=== PATIENT | female | born 1965 | race American Indian/Alaskan Native ===

== ENCOUNTER 2017-03-13 15:31 | Inpatient (IN) ==
[2017-03-13] MEDS ORDERED: IOPAMIDOL 100 ML BOTTLE IV ONE (15:32)
[2017-03-13] MEDS ORDERED: 0.9 % SODIUM CHLORIDE 1,000 ML IV ONE ×2 (15:57→22:16)
[2017-03-13] MEDS ORDERED: ACETAMINOPHEN 325 MG TABLET PO ONE (15:57)
[2017-03-13] MEDS ORDERED: KETOROLAC 30 MG/ML VIAL IV ONE (16:13)
[2017-03-13] MEDS ORDERED: 0.9 % SODIUM CHLORIDE 2,000 ML IV ONE (16:13)
[2017-03-13] MEDS ORDERED: ONDANSETRON 4 MG/2 ML VIAL IV ONE ×2 (16:13→22:22)
[2017-03-13] MEDS ORDERED: cefTRIAXone 1 GM in DEXTROSE 5% IN WATER 50 ML IV SCH (16:15)
[2017-03-13 16:32] LABS: Basophils # (Auto) 0 K/mcL (0.0-0.3); Basophils % (Auto) 0.2 % (0.0-2.0); Eosinophils # (Auto) 0 K/mcL (0.0-0.7); Eosinophils % (Auto) 0.2 % (0.0-7.0); Granulocytes % (Auto) 84.6 % (38.0-78.0); Lymphocytes # (Auto) 1.5 K/mcL (1.5-4.8); Lymphocytes % (Auto) 11.1 % (15.5-49.0); Mean Cell Volume 87.3 fL (80.0-100.0); Mean Corpuscular HGB Conc 33.1 g/dL (31.0-36.0); Mean Corpuscular Hemoglobin 28.9 pg (26.0-34.0); Monocytes # (Auto) 0.5 K/mcL (0.1-0.9); Monocytes % (Auto) 3.9 % (1.0-12.0); Platelet Count 208 K/mcL (140-440); RBC 4.64 M/mcL (4.00-5.20); Red Cell Distribution Width 15.3 % (11.5-14.5)
[2017-03-13 16:38] LABS: Appearance,Urine CLEAR; Bacteria,Urine 0 /hpf (0); Bilirubin,Urine NEG (NEG); Color,Urine YELLOW; Glucose,Urine (UA) NEGATIVE (NEG); Leukocyte Esterase,Urine 500 /uL (NEG); Mucus,Urine FEW /hpf (0); Nitrate,Urine NEG (NEG); Protein,Urine NEG (NEG); Specific Gravity,Urine 1.015 (1.000-1.035); Urine Blood NEG mg/dL (<0.03); Urine RBC 1 /hpf (0-1); Urine Squamous Epithelial Cell 1 /hpf (0-4); Urine WBC 14 /hpf (0-4); Urobilinogen,Urine NEG (NEG)
[2017-03-13] MEDS: HYDROmorphone 2 MG/ML SYRINGE IV PRN ×2 (16:40→19:31)
[2017-03-13 16:51] LABS: ALT/SGPT 27 U/l (0-40); Albumin 4.2 gm/dL (3.2-5.2); Alkaline Phosphatase 83 U/L (39-117); Blood Urea Nitrogen 8 mg/dl (6-20)
[2017-03-13 17:27] LABS: Lipase 21 U/L (7-60)
[2017-03-13] MEDS ORDERED: fentaNYL 100 MCG/2 ML VIAL IV ONE (19:50)
[2017-03-13] MEDS ORDERED: MIDAZOLAM 5 MG/5 ML VIAL IV ONE (19:50)
[2017-03-13] MEDS ORDERED: MIDAZOLAM 2 MG/2 ML VIAL ONE (20:38)
--- NOTE | 2017-03-13 21:54 | Procedure Note ---
Procedures - Lumbar Puncture Consent obtained: written consent Time out performed: Yes Patient position: upright Skin prep: Povidone-Iodine 1% Local anesthetic used: Lidocaine 1% Amount of anesthesia used (mLs): 3 Spinal needle gauge: Other (25 G) Interspace used: L3-L4 Fluid initially obtained: clear Complications: none Additional comments: consulted by Dr. Reynaga for lumbar puncture to R/O meningitis. Pt. consent obtained. pt to sitting position. Skin prepped in sterile fashion. L3-L4 palpated. 3mL 1%lidocaine injected SQ. 20G introduced inserted and 25 G Pencan needle inserted with Positive CSF return 4 Vials filled to total of 7mLs. Needle and introducer removed and bandaid applied to puncture site. Pt tolerated well. No complications noted.
[2017-03-13] MEDS ORDERED: HYDROmorphone 2 MG/ML SYRINGE IV PRN (21:56)
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
[2017-03-13 23:21] LABS: Glucose,CSF 58 mg/dL (45-75)
--- NOTE | 2017-03-13 23:32 | Internal Med History&Physical ---
Medical - H&P: HPI Patient information: Note initiated : 03/13/17 at 11:29 pm Service Date, if different from initiated Date: [] Patient: Zhane Meredith a 51 y/o F admitted on for abd pain, pain with urination , fever. Chief Complaint: [] History of present illness: Ms. Meredith is a 51 year old Female with h/o asthma presented to the ER today with compalitns of weakness fever and abodminal pain, knee pain. The patient was in some distress from pain, and was unable to provide a good time frame She notes that she had a left knee replacement done early this year by Dr Glasgow. the patient has been having some pain in the left knee going on for the last 1 month, taking some otc meds and ice packs to help deal with same. Over the last few days she notes pain has gotten worse and she has found it difficult to walk to day due to pain and weakness. Predominantly weakness. she notes that her acute worsening happened after a flu shot I believe given in [facility], the patient notes she was sick on wednesday, with lower abdmoinal pain and weakness, had some stiffness in the neck, and upper back. She notes she had lower abdominal cramping pain, non radiating assocated with increased frequency of urinartion, she notes pain in the urethral region as if somebody pulled a catheters out of there. The patient has been having some constipatin. She admits to some headaches, and dizziness. Some nausea and vomiting. some epigastric pain, but significant hypogastric pain. She admits having pain in multipe regions of her body, unable to localize well. In the ER she was febrile with tmax of 104.8, HR 120-130, BP stable, 96% on room air. She had a positive ua on urine analsysis, elevaetd wbc count to 13K, regino f lab work was unremakrable. The patient had CT abdomen which was reported neg, given her high temp ER physian performed a LP which showed clear liquid studies are pending During my eval the patient also ahd painful left knee,which was warmer than the right, and had some effusion. Er Provider Dr Reynaga tapped the joint and fluid sent for analysis, hemorrhage cloudy liquid was aspirated. patient was admitted to the hospital for further management. All systems: reviewed and no additional remarkable complaints except as stated ( as per HPI) Medical - H&P: PMH Medical history: OA Asthma HTN ? lupus depression Surgical history: bik TKA Family history: reviewed and not pertinent Social history: ex smoker denies recrational drugs social etoh Medical - H&P: Meds Home Medications Medication Instructions Recorded Confirmed Type Albuterol Sulfate [Ventolin] 1 puff INH Q4HP PRN 08/31/16 03/13/17 History Mometasone Furoate [Asmanex Hfa] 1 puff INH DAILY 08/31/16 03/13/17 History Allergies Allergy/AdvReac Type Severity Reaction Status Date / Time sumatriptan [From Imitrex] Allergy Severe Unknown Verified 08/31/16 15:15 TAPE Allergy Intermediate Blister Uncoded 08/31/16 15:19 Medical - H&P: Exam - Constitutional Vitals: Temp Pulse Resp BP Pulse Ox 102.4 F H 106 H 16 110/71 98 03/13/17 21:12 03/13/17 22:53 03/13/17 22:53 03/13/17 22:53 03/13/17 22:53 Exam: GENERAL: The patient is a well-developed, well-nourished Is alert and oriented x3. obese mild distress VITAL SIGNS: Reviewed and as noted elsewhere. HEENT: Head is normocephalic and atraumatic. Extraocular muscles are intact. Pupils are equal, round, and reactive to light. Nares appeared normal. Mouth appears any without lesions. Mucous membranes are moist. NECK: Normal to inspection, Supple, No lymphadenopathy or thyromegaly. LUNGS: Air entry equal on both sides, no wheezing, crackles or rhonchi noted. No accessory muscles of respiration HEART: Regular tachycardic rate and rhythm normal, S1 and S2 heard, no Gallop, S3 or Rub Noted, No Gross murmur heard. ABDOMEN: Soft, hypogastric tenderness and left upper quadrant tendeness noted, abdomen is nondistended. Positive bowel sounds. No hepatosplenomegaly was noted. EXTREMITIES: No cyanosis, clubbing, rash, lesions or edema., left knee slightlhy more swollen, but was warm to palpation than the right knee. NEUROLOGIC: Cranial nerves II through XII are grossly intact. Motor and Sensory System Grossly Intact PSYCHIATRIC: Normal affect, Normal Mood. Appropriate Behavior. SKIN: No ulceration or wounds noted, No jaundice, No rash noted. Medical - H&P: Reslt - Labs CBC & Chem 7: 03/13/17 15:55 03/13/17 15:55 Labs: Short CBC 03/13/17 Range/Units 15:55 WBC 13.8 H (4.5-11.0) K/mcL Hgb 13.4 (12.0-15.0) g/dL Hct 40.5 (36.0-48.0) % Plt Count 208 (140-440) K/mcL BMP 03/13/17 15:55 Sodium 136 Potassium 3.5 Chloride 96 Carbon Dioxide 25 BUN 8 Creatinine 0.9 Glucose 98 Calcium 9.3 Liver Function 03/13/17 Range/Units 15:55 Total Bilirubin 0.8 (0.0-1.0) mg/dL AST 37 (0-37) U/l ALT 27 (0-40) U/l Alkaline Phosphatase 83 (39-117) U/L Albumin 4.2 (3.2-5.2) gm/dL Urine 03/13/17 Range/Units 16:10 Urine Color Yellow Urine Appearance Clear Urine pH 8.0 (5.0-9.0) Ur Specific [place] 1.015 (1.000-1.035) Urine Protein Neg (NEG) mg/dL Urine Glucose (UA) Negative (NEG) mg/dL Medical - H&P: A/P - Narrative A/P Narrative: A/P Sepsis septic Arthritis Urinary tract infection ? meningitis Asthma Obesity Hypokalemia Plan Treat sepsis with IV antibiotics and underlying etiology Give a vague clinical picture, difficult to ascertain the etiology of her fever , Its likely that she just has a UTI, however her high degree of fever other etiology needed to be ruled out. Her generalized pain every where made it difficult to pin point her source. She had some neck stiffness, chr headaches which made meningitis a possibility Her left knee pain, recently replaced joint, h/o mrsa made septic arthritis possibility both csf and synovial fluids were sent for analysis IV boluese of fluids ordered will get CXR chest IV vancomycin and Rocephin for now. follow cultures replace electrolytes. DVT hep sq Cardiac diet Full Code.
[2017-03-13 23:37] LABS: Appearance,CSF CLEAR; Nucleated Cells,CSF 4 /cumm (0-5); Red Blood Cell,CSF 0 /cumm (0-1)
[2017-03-13 23:38] LABS: Appearance,CSF CLEAR; Nucleated Cells,CSF 4 /cumm (0-5); Red Blood Cell,CSF 0 /cumm (0-1)
[2017-03-14] MEDS ORDERED: VANCOMYCIN PER PHARMACY IV SCH (00:06)
[2017-03-14] MEDS ORDERED: 0.9 % SODIUM CHLORIDE 1,000 ML IV ONE ×2 (00:06)
[2017-03-14] MEDS ORDERED: PROMETHAZINE 25 MG/ML VIAL IV PRN (00:06)
[2017-03-14] MEDS ORDERED: ACETAMINOPHEN 325 MG TABLET PO PRN (00:06)
[2017-03-14] MEDS ORDERED: cefTRIAXone 1 GM in DEXTROSE 5% IN WATER 50 ML IV ONE (00:06)
[2017-03-14] MEDS ORDERED: VANCOMYCIN 1,500 MG in 0.9 % SODIUM CHLORIDE 500 ML IV ONE (00:06)
[2017-03-14] MEDS ORDERED: NALOXONE HCL 0.4 MG/ML VIAL IV PRN (00:06)
[2017-03-14] MEDS ORDERED: MAG HYDROX/AL HYDROX/SIMETH 30 ML ORAL.SUSP PO PRN (00:06)
[2017-03-14] MEDS ORDERED: cefTRIAXone 1 GM VIAL ONE (00:18)
[2017-03-14] MEDS ORDERED: VANCOMYCIN 500 MG VIAL ONE (00:18)
[2017-03-14] MEDS ORDERED: VANCOMYCIN 1 GM VIAL ONE (00:19)
[2017-03-14 00:24] LABS: Lymphocytes,CSF 83 % (40-80); Monocytes,CSF 17 % (15-45); Total Cell Ct,CSF 88
[2017-03-14] MEDS: ACETAMINOPHEN 650 MG/65 ML BOTTLE IV SCH ×4 (01:10→17:43)
[2017-03-14] MEDS ORDERED: ONDANSETRON 4 MG/2 ML VIAL ONE (01:27)
[2017-03-14] MEDS ORDERED: HYDROmorphone 2 MG/ML SYRINGE ONE ×2 (01:27→05:32)
[2017-03-14 01:32] LABS: Appearance,Synovial Fluid BLOODY; Color,Synovial Fluid RED
[2017-03-14] MEDS: IPRATROPIUM/ALBUTEROL 3 ML AMPUL.NEB NEB SCH ×4 (01:36→19:26)
[2017-03-14] MEDS: HEPARIN 5,000 UNIT/ML VIAL SQ SCH ×3 (01:38→21:04)
[2017-03-14] MEDS ORDERED: HEPARIN 5,000 UNIT/ML VIAL ONE (01:40)
[2017-03-14] MEDS ORDERED: IPRATROPIUM/ALBUTEROL 3 ML AMPUL.NEB NEB ONE (01:41)
[2017-03-14 01:52] LABS: Lymphocytes,Synovial Fluid 23 %; Neutrophils,Synovial Fluid 68 % (0-25); Other Cells,Synovial Fluid 9 %
[2017-03-14] MEDS: 0.9 % SODIUM CHLORIDE 1,000 ML IV SCH ×3 (02:32→16:21)
[2017-03-14] MEDS: HYDROmorphone 2 MG/ML SYRINGE IV PRN ×5 (05:31→22:55)
[2017-03-14] MEDS: 0.9 % SODIUM CHLORIDE 10 ML SYRINGE IV SCH ×3 (05:32→22:56)
[2017-03-14 06:45] LABS: Basophils # (Auto) 0 K/mcL (0.0-0.3); Basophils % (Auto) 0.2 % (0.0-2.0); Eosinophils # (Auto) 0 K/mcL (0.0-0.7); Eosinophils % (Auto) 0 % (0.0-7.0); Lymphocytes # (Auto) 1.3 K/mcL (1.5-4.8); Lymphocytes % (Auto) 8.3 % (15.5-49.0); Mean Cell Volume 88.2 fL (80.0-100.0); Mean Corpuscular HGB Conc 33.6 g/dL (31.0-36.0); Mean Corpuscular Hemoglobin 29.6 pg (26.0-34.0); Monocytes # (Auto) 0.5 K/mcL (0.1-0.9); Monocytes % (Auto) 3.5 % (1.0-12.0); Platelet Count 150 K/mcL (140-440); RBC 4.01 M/mcL (4.00-5.20); Red Cell Distribution Width 15.9 % (11.5-14.5)
[2017-03-14 07:00] LABS: Hemoglobin A1C 5.4 % HGB (4.0-6.0)
[2017-03-14 07:05] LABS: C-Reactive Protein 8.8 mg/dl (0.0-0.8)
[2017-03-14 07:07] LABS: ALT/SGPT 18 U/l (0-40); Albumin/Globulin Ratio 0.8 (1.0-2.3); Alkaline Phosphatase 64 U/L (39-117); Bilirubin,Direct < 0.2 mg/dL (0.0-0.3); Blood Urea Nitrogen 6 mg/dl (6-20); Gamma Glutamyl Transpeptidase 20 U/L (5-36); Magnesium 1.8 mg/dL (1.6-2.5); Uric Acid 4.5 mg/dL (2.5-8.0)
[2017-03-14] MEDS: DOCUSATE SODIUM 100 MG CAPSULE PO SCH ×2 (08:11→22:43)
--- NOTE | 2017-03-14 09:00 | Cat Scan Report ---
CLINICAL INFORMATION: Reason for Exam:lower quadrant pain and fever COMPARISON: Chest CT on 06/10/12 TECHNIQUE: Following injection of intravenous contrast the patient was scanned during the portal venous phase from the diaphragm through the symphysis pubis. Sagittal and coronal reformats were created.. FINDINGS: There is a mild reticular nodular infiltrate posteriorly in the right lower lobe. A similar finding was seen on a prior chest CT done on 06/10/12. Moderate generalized fatty infiltration is present throughout the liver. There is a lobulated 1.3 cm fluid-filled structure high in the right lobe. Anterolaterally in the right lobe there is another 9 x 10 mm cyst. These were both present in 2013 and they have both enlarged several millimeter. They do not enhance with contrast and have water attenuation. No solid mass is seen within the liver. The bile ducts are nondilated. There are no gallstones or thickening of the gallbladder wall. The spleen, pancreas, adrenals and kidneys are normal. The bowel pattern is normal. The appendix is noninflamed and there is no evidence of diverticulitis or inflammatory bowel disease. No abnormality is seen within the uterus or ovaries. There is no adenopathy or ascites. IMPRESSION: Moderate fatty infiltration of the liver with a couple small to intermediate sized cysts. Reticular nodular infiltrate in the right lower lobe which may be seen with bronchopneumonia Normal right lower quadrant Dr. Reynaga was called with results Interpreted and Authenticated by: Cordell Stevenson 03/14/17
[2017-03-14] MEDS: ONDANSETRON 4 MG/2 ML VIAL IV PRN ×2 (09:11→15:06)
--- NOTE | 2017-03-14 09:36 | XRay Report ---
HISTORY: Reason for Exam:fever FINDINGS: Subtle increased lung markings are present medially at the right lung base. These were better seen on the abdomen CT scan done on 03/13/17. The lungs are otherwise clear and well expanded. The heart size, mediastinum, carri and pleura are normal. IMPRESSION: Subtle interstitial infiltrate posteriorly and medially in the right lung base Interpreted and Authenticated by: Cordell Stevenson 03/14/17
[2017-03-14] MEDS ORDERED: AZITHROMYCIN 500 MG in DEXTROSE 5% IN WATER 250 ML IV ONE (10:00)
--- NOTE | 2017-03-14 10:17 | Internal Med Progress Note ---
Medical - PN: Subj Patient information: Note initiated : 03/14/17 at 10:15 am Service Date, if different from initiated Date: [] Patient: Zhane Meredith a 51 y/o F admitted on 03/14/17 for abd pain, pain with urination, fever. Chief Complaint: [] Interval history: Ms. Meredith is a 51 year old Female with h/o asthma presented to the ER today with compalitns of weakness fever and abodminal pain, knee pain. The patient was in some distress from pain, and was unable to provide a good time frame She notes that she had a left knee replacement done early this year by Dr Glasgow. the patient has been having some pain in the left knee going on for the last 1 month, taking some otc meds and ice packs to help deal with same. Over the last few days she notes pain has gotten worse and she has found it difficult to walk to day due to pain and weakness. Predominantly weakness. she notes that her acute worsening happened after a flu shot I believe given in [facility], the patient notes she was sick on wednesday, with lower abdmoinal pain and weakness, had some stiffness in the neck, and upper back. She notes she had lower abdominal cramping pain, non radiating assocated with increased frequency of urinartion, she notes pain in the urethral region as if somebody pulled a catheters out of there. The patient has been having some constipatin. She admits to some headaches, and dizziness. Some nausea and vomiting. some epigastric pain, but significant hypogastric pain. She admits having pain in multipe regions of her body, unable to localize well. In the ER she was febrile with tmax of 104.8, HR 120-130, BP stable, 96% on room air. She had a positive ua on urine analsysis, elevaetd wbc count to 13K, regino f lab work was unremakrable. The patient had CT abdomen which was reported neg, given her high temp ER physian performed a LP which showed clear liquid studies are pending During my eval the patient also ahd painful left knee,which was warmer than the right, and had some effusion. Er Provider Dr Reynaga tapped the joint and fluid sent for analysis, hemorrhage cloudy liquid was aspirated. patient was admitted to the hospital for further management. March 14 Patient seen examined, no acute overnight issues, patient having headaches since last night still has lower abdominal pain she is afebrile now, and heart rate is better CSF and Synovial fluid not suggestive as etiology of her infection procalcitonin is elevated, UTI likely, but CXR and CT abdomen also show a some infiltrate indicative of broncho pneumonia. Will add azithromycin to her regime. 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 Will monitor culture results, discontinue vanco once cultures are negative. Pertinent ROS: headche , dizziness present. Denies chest pain, palpitations Denies cough or shortness of breath Present abdominal pain, nausea and vomiting. - Constitutional Vitals: Vital Signs Temp Pulse Resp BP Pulse Ox 97.6 F 99 H 16 101/60 98 03/14/17 07:15 03/14/17 08:49 03/14/17 08:49 03/14/17 07:15 03/14/17 08:49 Period Temp Pulse Resp BP Sys/Espinoza Pulse Ox Last 24 Hr 97.6 F-104.8 F 87-127 11-40 82-138/31-91 93-100 Intake and Output 03/13/17 03/14/17 03/14/17 21:59 05:59 13:59 Intake Total 3050 / 3050 3515 / 3515 917 / 917 Output Total 750 / 750 800 / 800 Balance 3050 / 3050 2765 / 2765 117 / 117 Weight 236 lb 236 lb Intake & Output: Intake & Output 03/13/17 03/14/17 03/14/17 21:59 05:59 13:59 Intake Total 3050 / 3050 3515 / 3515 917 / 917 Output Total 750 / 750 800 / 800 Balance 3050 / 3050 2765 / 2765 117 / 117 Weight 236 lb 236 lb Intake: IV 3050 / 3050 3115 / 3115 717 / 717 Sodium Chloride 0.9% 1,000 ml @ 3000 / 3000 3000 / 3000 652 / 652 125 mls/hr IV .Q8H [facility] Rx#: [id number] Rocephin 1 gm In Dextrose 5% in 50 / 50 50 / 50 Water 50 ml @ 100 mls/hr IV ONCE ONE Rx#:[id number] Oral 400 / 400 200 / 200 Output: Void Amount 750 / 750 400 / 400 Urine/Stool Mix 400 / 400 Other: Meal Breakfast Percent of Meal Consumed Refused # Voids 1 1 # Bowel Movements 1 Exam: Constitutional; Afebrile, cooperative, alert, not in distress. Eyes- No icterus, , No periorbital swelling Ears- Ext ear normal, hearing normal to conversation. Neck- Midline trachea, supple Respiratory system: Air Entry equal on both sides, No crackles or wheezing, no rhonchi. CVS- Rate rhythm regular, S1,S2 heard, no gallop, no rub. Abdomen- Soft abdomen, hypogastric tenderness present. no organomegaly, no tenderness, no guarding or rigidity, CLOUD SERVICES ARCHITECT- AOOx3, moving all extremities, no gross focal deficit noted. Medical - PN: Obj Da - Labs CBC & Chem 7: 03/14/17 06:05 03/14/17 06:06 Labs: Abnormal Lab Results 03/14/17 03/14/17 03/14/17 06:06 06:06 06:05 WBC 15.7 H Hgb 11.9 L Hct 35.3 L RDW 15.9 H Gran % 88.0 H Lymph % (Auto) 8.3 L Gran # 13.8 H Lymph # (Auto) 1.3 L ESR 38 H Calcium 7.7 L POC WB Ioniz Calcium C-Reactive Protein Albumin 3.0 L Globulin 3.9 H Albumin/Globulin Ratio 0.8 L Ur Leukocyte Esterase Urine WBC CSF Lymphocytes Synovial Neutrophils 03/14/17 03/13/17 03/13/17 06:05 23:29 22:06 WBC Hgb Hct RDW Gran % Lymph % (Auto) Gran # Lymph # (Auto) ESR Calcium POC WB Ioniz Calcium C-Reactive Protein 8.8 H Albumin Globulin Albumin/Globulin Ratio Ur Leukocyte Esterase Urine WBC CSF Lymphocytes 83 H Synovial Neutrophils 68 H 03/13/17 03/13/17 03/13/17 16:38 16:10 15:55 WBC Hgb Hct RDW Gran % Lymph % (Auto) Gran # Lymph # (Auto) ESR Calcium POC WB Ioniz Calcium 1.01 L C-Reactive Protein Albumin Globulin 4.1 H Albumin/Globulin Ratio Ur Leukocyte Esterase 500 A Urine WBC 14 H CSF Lymphocytes Synovial Neutrophils 03/13/17 15:55 WBC 13.8 H Hgb Hct RDW 15.3 H Gran % 84.6 H Lymph % (Auto) 11.1 L Gran # 11.6 H Lymph # (Auto) ESR Calcium POC WB Ioniz Calcium C-Reactive Protein Albumin Globulin Albumin/Globulin Ratio Ur Leukocyte Esterase Urine WBC CSF Lymphocytes Synovial Neutrophils Meds: Medications Al Hydrox/Mg Hydrox/Simethicone (Maalox) 30 ml PO Q6HP PRN PRN Reason: Dyspepsia Albuterol/Ipratropium (Duoneb) 3 ml NEB Q6HRT [facility] Last Admin: 03/14/17 08:48 Dose: 3 ml Docusate Sodium (Colace) 100 mg PO BID [facility] Last Admin: 03/14/17 08:11 Dose: 100 mg Heparin Sodium (Porcine) (Heparin) 5,000 unit SQ Q12 [facility] Last Admin: 03/14/17 08:11 Dose: 5,000 unit Hydromorphone HCl (Dilaudid) 1 mg IV Q2HP PRN PRN Reason: Pain Last Admin: 03/14/17 09:12 Dose: 1 mg Sodium Chloride (Sodium Chloride 0.9%) 1,000 mls @ 125 mls/hr IV .Q8H [facility] Last Admin: 03/14/17 07:45 Dose: 125 mls/hr Ceftriaxone Sodium 2 gm/ (Dextrose) 50 mls @ 100 mls/hr IV Q24H [facility] Acetaminophen (Ofirmev) 650 mg in 65 mls @ 130 mls/hr IV Q6H [facility] Last Infusion: 03/14/17 06:35 Dose: Infused Vancomycin HCl 1,500 mg/ (Sodium Chloride) 500 mls @ 333.3 mls/hr IV Q12H [facility] Azithromycin 500 mg/ Dextrose 250 mls @ 250 mls/hr IV ONCE ONE Stop: 03/14/17 10:59 Azithromycin 250 mg/ Dextrose 250 mls @ 250 mls/hr IV Q24H [facility] Stop: 03/18/17 10:59 Naloxone HCl (Narcan) 0.1 mg IV Q2MIN PRN PRN Reason: Opiate Reversal Ondansetron HCl (Zofran) 4 mg IV Q6HP PRN PRN Reason: Nausea And Vomiting Last Admin: 03/14/17 09:11 Dose: 4 mg Mometasone Furoate [ (Asmanex Hfa] Inhaler) 1 dose INH DAILY [facility] Last Admin: 03/14/17 09:15 Dose: Not Given Promethazine HCl (Phenergan) 12.5 mg IV Q6HP PRN PRN Reason: Nausea And Vomiting Sodium Chloride (Saline Flush) 10 ml IV Q8 [facility] Last Admin: 03/14/17 05:32 Dose: 10 ml Vancomycin HCl (Vancomycin Per Pharmacy) 1 order IV UD [facility] Medical - PN: A/P - Time Spent With Patient Total time spent is greater than 50% in coordination of care (as documented) at patient's floor/unit and/or counseling patient: - Narrative A/P Narrative: A/P Sepsis septic Arthritis Urinary tract infection ? meningitis Pneumonia. HCAP Asthma Obesity Hypokalemia Plan Treat sepsis with IV antibiotics and underlying etiology Give a vague clinical picture, difficult to ascertain the etiology of her fever , UTI is most likely , X ray shows possible small pneumoina, CSF and synovial fluid analsysi seems negative. will await cultures. IV fluids for now IV vancomycin and Rocephin for now. Azithromycin ordered. follow cultures DVT hep sq Cardiac diet Full Code.
[2017-03-14] MEDS ORDERED: DESONIDE TOPICAL PRN (10:22)
[2017-03-14] MEDS: VANCOMYCIN 1,500 MG in 0.9 % SODIUM CHLORIDE 500 ML IV SCH (12:19)
--- NOTE | 2017-03-14 15:42 | XRay Report ---
HISTORY: Reason for Exam:chest pressure FINDINGS: There is a small vertically oriented streaky infiltrate located posteriorly and medially in the right lower lobe. The remainder of the lung wright are clear. The heart size, mediastinum and carri are normal. There is no pleural effusion. The opacity at the right lung base is more apparent now than it was at 7:51 AM on the same date. IMPRESSION: Small zone of atelectasis or pneumonia located posteriorly and medially in the right lower lobe Interpreted and Authenticated by: Cordell Stevenson 03/14/17
[2017-03-14] MEDS ORDERED: cefTRIAXone 2 GM in DEXTROSE 5% IN WATER 50 ML IV SCH (16:00)
[2017-03-14 16:30] LABS: Complement C3 139.5 mg/dl (90-180)
[2017-03-14 18:05] LABS: Amphetamine Screen,Urine NONE DETECTED (NONDETECTED); Benzodiazepines Screen,Urine NONE DETECTED (NONDETECTED); Cocaine Screen,Urine NONE DETECTED (NONDETECTED); Opiate Screen,Urine NONE DETECTED (NONDETECTED); Oxycodone, Urine Screen NONE DETECTED (NONDETECTED)
[2017-03-15] MEDS: ACETAMINOPHEN 650 MG/65 ML BOTTLE IV SCH ×4 (00:35→18:30)
[2017-03-15] MEDS: ALBUTEROL SULFATE 2.5 MG/3 ML NEBULIZER NEB SCH ×4 (00:37→19:23)
[2017-03-15] MEDS: VANCOMYCIN 1,500 MG in 0.9 % SODIUM CHLORIDE 500 ML IV SCH ×2 (00:37→13:13)
[2017-03-15] MEDS ORDERED: ALBUTEROL SULFATE 2.5 MG/3 ML NEBULIZER ONE (00:39)
[2017-03-15] MEDS: 0.9 % SODIUM CHLORIDE 1,000 ML IV SCH ×4 (01:01→15:18)
[2017-03-15] MEDS: HYDROmorphone 2 MG/ML SYRINGE IV PRN ×3 (03:39→17:13)
[2017-03-15 06:05] LABS: Basophils # (Auto) 0 K/mcL (0.0-0.3); Basophils % (Auto) 0.2 % (0.0-2.0); Eosinophils # (Auto) 0 K/mcL (0.0-0.7); Eosinophils % (Auto) 0 % (0.0-7.0); Granulocytes % (Auto) 89.8 % (38.0-78.0); Lymphocytes % (Auto) 5.8 % (15.5-49.0); Mean Cell Volume 88.7 fL (80.0-100.0); Mean Corpuscular HGB Conc 32.9 g/dL (31.0-36.0); Mean Corpuscular Hemoglobin 29.2 pg (26.0-34.0); Monocytes # (Auto) 0.7 K/mcL (0.1-0.9); Monocytes % (Auto) 4.2 % (1.0-12.0); Platelet Count 136 K/mcL (140-440); RBC 3.64 M/mcL (4.00-5.20); Red Cell Distribution Width 15.5 % (11.5-14.5)
[2017-03-15 06:30] LABS: ALT/SGPT 14 U/l (0-40); Albumin 2.8 gm/dL (3.2-5.2); Albumin/Globulin Ratio 0.8 (1.0-2.3); Alkaline Phosphatase 62 U/L (39-117); Bilirubin,Direct < 0.2 mg/dL (0.0-0.3); Blood Urea Nitrogen 4 mg/dl (6-20); Gamma Glutamyl Transpeptidase 21 U/L (5-36); Magnesium 1.9 mg/dL (1.6-2.5)
[2017-03-15] MEDS: 0.9 % SODIUM CHLORIDE 10 ML SYRINGE IV SCH ×3 (06:33→20:21)
[2017-03-15] MEDS: ONDANSETRON 4 MG/2 ML VIAL IV PRN ×2 (07:15→20:21)
[2017-03-15] MEDS ORDERED: POTASSIUM CHLORIDE 40 MEQ in DEXTROSE 5% IN WATER 500 ML IV ONE (07:30)
[2017-03-15] MEDS: HEPARIN 5,000 UNIT/ML VIAL SQ SCH ×2 (10:47→20:21)
[2017-03-15] MEDS: DOCUSATE SODIUM 100 MG CAPSULE PO SCH ×2 (10:47→20:20)
[2017-03-15] MEDS: PIPERACILLIN SODIUM/TAZOBACTAM 3.375 GM in DEXTROSE 5% IN WATER 50 ML IV SCH ×3 (10:48→18:07)
[2017-03-15] MEDS: AZITHROMYCIN 250 MG in DEXTROSE 5% IN WATER 250 ML IV SCH (10:48)
[2017-03-15] MEDS ORDERED: 0.9 % SODIUM CHLORIDE 10 ML SYRINGE IV PRN (10:57)
--- NOTE | 2017-03-15 11:14 | Ultrasound Report ---
CLINICAL INFORMATION: Pelvic pain COMPARISON: Abdomen and pelvic CT from 03/05/2017 FINDINGS: Uterus is anteverted and normal in size for postmenopausal woman - 6.4 x 5 cm. Endometrium is normal is 5 mm. Myometrium is mildly heterogeneous. Left ovary is not visualized. Right ovary is normal: 2.6 x 2.8 cm. The left uterine and periovarian venous plexuses are mildly dilated. Small amount of physiologic anechoic free fluid is noted in the pouch of Harvinder IMPRESSION: 1. Uterus is anteflexed and postmenopausal in size. Inhomogeneous myometrium typically indicates adenomyosis and/or small fibroids below the limits of sonographic resolution. The endometrium is slightly atrophic which can be a cause of dysfunctional uterine bleeding 2. Mild enlargement of the left periuterine and periovarian venous plexus - also noted on recent CT. This is likely insignificant unless there is chronic pelvic pain possibly indicating pelvic congestion syndrome Interpreted and Authenticated by: Dawson Rosenbaum 03/15/17
[2017-03-15] MEDS: METOCLOPRAMIDE 10 MG/2 ML VIAL IV SCH ×3 (11:41→20:21)
--- NOTE | 2017-03-15 16:06 | Internal Med Progress Note ---
Medical - PN: Subj Patient information: Note initiated : 03/15/17 at 4:04 pm Service Date, if different from initiated Date: [] Patient: Zhane Meredith a 51 y/o F admitted on 03/14/17 for Abd Pain, Pain with Urination, Fever/UTI, Sepsis. Chief Complaint: [] Interval history: Ms. Meredith is a 51 year old Female with h/o asthma presented to the ER today with compalitns of weakness fever and abodminal pain, knee pain. The patient was in some distress from pain, and was unable to provide a good time frame She notes that she had a left knee replacement done early this year by Dr Glasgow. the patient has been having some pain in the left knee going on for the last 1 month, taking some otc meds and ice packs to help deal with same. Over the last few days she notes pain has gotten worse and she has found it difficult to walk to day due to pain and weakness. Predominantly weakness. she notes that her acute worsening happened after a flu shot I believe given in [facility], the patient notes she was sick on wednesday, with lower abdmoinal pain and weakness, had some stiffness in the neck, and upper back. She notes she had lower abdominal cramping pain, non radiating assocated with increased frequency of urinartion, she notes pain in the urethral region as if somebody pulled a catheters out of there. The patient has been having some constipatin. She admits to some headaches, and dizziness. Some nausea and vomiting. some epigastric pain, but significant hypogastric pain. She admits having pain in multipe regions of her body, unable to localize well. In the ER she was febrile with tmax of 104.8, HR 120-130, BP stable, 96% on room air. She had a positive ua on urine analsysis, elevaetd wbc count to 13K, regino f lab work was unremakrable. The patient had CT abdomen which was reported neg, given her high temp ER physian performed a LP which showed clear liquid studies are pending During my eval the patient also ahd painful left knee,which was warmer than the right, and had some effusion. Er Provider Dr Reynaga tapped the joint and fluid sent for analysis, hemorrhage cloudy liquid was aspirated. patient was admitted to the hospital for further management. March 14 Patient seen examined, no acute overnight issues, patient having headaches since last night still has lower abdominal pain she is afebrile now, and heart rate is better CSF and Synovial fluid not suggestive as etiology of her infection procalcitonin is elevated, UTI likely, but CXR and CT abdomen also show a some infiltrate indicative of broncho pneumonia. Will add azithromycin to her regime. 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 Will monitor culture results, discontinue vanco once cultures are negative. March 15 Patient seen examined, no acute overnight events, pt mildly febrile still complains of nausea and abdominal pain headache not as much today Pertinent ROS: present headache, No dizziness Denies chest pain, palpitations Denies cough or shortness of breath present abdominal pain, nausea no vomiting. - Constitutional Vitals: Vital Signs Temp Pulse Resp BP Pulse Ox 97.8 F 77 16 106/78 98 03/15/17 15:44 03/15/17 15:44 03/15/17 15:44 03/15/17 15:44 03/15/17 15:44 Period Temp Pulse Resp BP Sys/Espinoza Pulse Ox Last 24 Hr 97.8 F-99.7 F 75-95 12-18 94-115/58-80 91-99 Intake and Output 03/15/17 03/15/17 03/15/17 05:59 13:59 21:59 Intake Total 1865 / 1865 1430 / 1430 500 / 500 Output Total 1400 / 1400 1350 / 1350 950 / 950 Balance 465 / 465 80 / 80 -450 / -450 Weight 236 lb Patient Weight 03/16/17 05:59 Weight 236 lb Intake & Output: Intake & Output 03/15/17 03/15/17 03/15/17 05:59 13:59 21:59 Intake Total 1865 / 1865 1430 / 1430 500 / 500 Output Total 1400 / 1400 1350 / 1350 950 / 950 Balance 465 / 465 80 / 80 -450 / -450 Weight 236 lb Intake: IV 1615 / 1615 1430 / 1430 500 / 500 Sodium Chloride 0.9% 1,000 ml @ 1000 / 1000 1000 / 1000 125 mls/hr IV .Q8H [facility] Rx#: [id number] Zithromax 250 mg In Dextrose 5% 250 / 250 in Water 250 ml @ 250 mls/hr IV Q24H [facility] Rx#:[id number] Zosyn 3.375 gm In Dextrose 5% 50 / 50 in Water 50 ml @ 100 mls/hr IV Q6H [facility] Rx#:[id number] Vancomycin 1,500 mg In Sodium 500 / 500 500 / 500 Chloride 0.9% 500 ml @ 333.3 mls/hr IV Q12H [facility] Rx#: [id number] Rocephin 2 gm In Dextrose 5% in 50 / 50 Water 50 ml @ 100 mls/hr IV Q24H [facility] Rx#:[id number] Oral 250 / 250 Output: Void Amount 900 / 900 1350 / 1350 600 / 600 # of times incontinent of urine 500 / 500 Urine/Stool Mix 350 / 350 Other: # Voids 1 1 1 # Bowel Movements 1 Exam: Constitutional; Afebrile, cooperative, alert, not in distress. Eyes- No icterus, , No periorbital swelling Ears- Ext ear normal, hearing normal to conversation. Neck- Midline trachea, supple Respiratory system: Air Entry equal on both sides, No crackles or wheezing, no rhonchi. CVS- Rate rhythm regular, S1,S2 heard, no gallop, no rub. Abdomen- Soft abdomen, hypgastric tenderness present no organomegaly, no tenderness, no guarding or rigidity, BOILER OUT- AOOx3, moving all extremities, no gross focal deficit noted. Medical - PN: Obj Da - Labs CBC & Chem 7: 03/15/17 04:44 03/15/17 04:44 Labs: Abnormal Lab Results 03/15/17 03/15/17 03/14/17 04:44 04:44 15:25 WBC 16.7 H RBC 3.64 L Hgb 10.6 L Hct 32.3 L RDW 15.5 H Plt Count 136 L Gran % 89.8 H Lymph % (Auto) 5.8 L Gran # 15.0 H Lymph # (Auto) 1.0 L ESR Potassium 3.1 L BUN 4 L Calcium 8.3 L POC WB Ioniz Calcium Phosphorus 2.3 L C-Reactive Protein Albumin 2.8 L Globulin Albumin/Globulin Ratio 0.8 L Ur Leukocyte Esterase Urine WBC CSF Lymphocytes Synovial Neutrophils Complement C4 8.4 L 03/14/17 03/14/1717 06:06 06:06 06:05 WBC 15.7 H RBC Hgb 11.9 L Hct 35.3 L RDW 15.9 H Plt Count Gran % 88.0 H Lymph % (Auto) 8.3 L Gran # 13.8 H Lymph # (Auto) 1.3 L ESR 38 H Potassium BUN Calcium 7.7 L POC WB Ioniz Calcium Phosphorus C-Reactive Protein Albumin 3.0 L Globulin 3.9 H Albumin/Globulin Ratio 0.8 L Ur Leukocyte Esterase Urine WBC CSF Lymphocytes Synovial Neutrophils Complement C4 03/14/17 03/13/17 03/13/17 06:05 23:29 22:06 WBC RBC Hgb Hct RDW Plt Count Gran % Lymph % (Auto) Gran # Lymph # (Auto) ESR Potassium BUN Calcium POC WB Ioniz Calcium Phosphorus C-Reactive Protein 8.8 H Albumin Globulin Albumin/Globulin Ratio Ur Leukocyte Esterase Urine WBC CSF Lymphocytes 83 H Synovial Neutrophils 68 H Complement C4 03/13/17 03/13/17 03/13/17 16:38 16:10 15:55 WBC RBC Hgb Hct RDW Plt Count Gran % Lymph % (Auto) Gran # Lymph # (Auto) ESR Potassium BUN Calcium POC WB Ioniz Calcium 1.01 L Phosphorus C-Reactive Protein Albumin Globulin 4.1 H Albumin/Globulin Ratio Ur Leukocyte Esterase 500 A Urine WBC 14 H CSF Lymphocytes Synovial Neutrophils Complement C4 03/13/17 15:55 WBC 13.8 H RBC Hgb Hct RDW 15.3 H Plt Count Gran % 84.6 H Lymph % (Auto) 11.1 L Gran # 11.6 H Lymph # (Auto) ESR Potassium BUN Calcium POC WB Ioniz Calcium Phosphorus C-Reactive Protein Albumin Globulin Albumin/Globulin Ratio Ur Leukocyte Esterase Urine WBC CSF Lymphocytes Synovial Neutrophils Complement C4 Meds: Medications Al Hydrox/Mg Hydrox/Simethicone (Maalox) 30 ml PO Q6HP PRN PRN Reason: Dyspepsia Albuterol Sulfate (Ventolin) 2.5 mg NEB Q6HRT [facility] Last Admin: 03/15/17 13:32 Dose: Not Given Docusate Sodium (Colace) 100 mg PO BID [facility] Last Admin: 03/15/17 10:47 Dose: Not Given Heparin Sodium (Porcine) (Heparin) 5,000 unit SQ Q12 [facility] Last Admin: 03/15/17 10:47 Dose: 5,000 unit Heparin Sodium (Porcine) (Heparin Flush) 2 ml IV Q12 [facility] Hydromorphone HCl (Dilaudid) 1 mg IV Q2HP PRN PRN Reason: Pain Last Admin: 03/15/17 07:37 Dose: 1 mg Sodium Chloride (Sodium Chloride 0.9%) 1,000 mls @ 125 mls/hr IV .Q8H [facility] Last Admin: 03/15/17 15:18 Dose: 125 mls/hr Acetaminophen (Ofirmev) 650 mg in 65 mls @ 130 mls/hr IV Q6H [facility] Last Infusion: 03/15/17 12:15 Dose: Infused Vancomycin HCl 1,500 mg/ (Sodium Chloride) 500 mls @ 333.3 mls/hr IV Q12H [facility] Last Infusion: 03/15/17 15:00 Dose: Infused Azithromycin 250 mg/ Dextrose 250 mls @ 250 mls/hr IV Q24H [facility] Stop: 03/18/17 10:59 Last Infusion: 03/15/17 11:58 Dose: Infused Piperacillin Sod/Tazobactam (Sod 3.375 gm/ Dextrose) 50 mls @ 100 mls/hr IV Q6H [facility] Last Admin: 03/15/17 12:55 Dose: Not Given Metoclopramide HCl (Reglan) 5 mg IV ACHS [facility] Last Admin: 03/15/17 11:41 Dose: 5 mg Naloxone HCl (Narcan) 0.1 mg IV Q2MIN PRN PRN Reason: Opiate Reversal Ondansetron HCl (Zofran) 4 mg IV Q6HP PRN PRN Reason: Nausea And Vomiting Last Admin: 03/15/17 07:15 Dose: 4 mg Mometasone Furoate [ (Asmanex Hfa] Inhaler) 1 dose INH DAILY [facility] Last Admin: 03/15/17 10:23 Dose: Not Given Desonide [Tridesilon (] Cream) 1 dose TOPICAL DAILYP PRN PRN Reason: Skin Irritation Sodium Chloride (Saline Flush) 10 ml IV Q8 [facility] Last Admin: 03/15/17 14:11 Dose: Not Given Sodium Chloride (Saline Flush) 10 ml IV UD PRN PRN Reason: FLUSH Vancomycin HCl (Vancomycin Per Pharmacy) 1 order IV UD [facility] Medical - PN: A/P - Time Spent With Patient Total time spent is greater than 50% in coordination of care (as documented) at patient's floor/unit and/or counseling patient: - Narrative A/P Narrative: A/P Sepsis septic Arthritis Urinary tract infection ? meningitis Pneumonia. HCAP Asthma Obesity Hypokalemia Plan Treat sepsis with IV antibiotics and underlying etiology Give a vague clinical picture, difficult to ascertain the etiology of her fever , UTI is most likely , X ray shows possible small pneumonia, csf and synovial fluid culture is negative, Pelvic usg is negative IV fluids for now IV vancomycin and Rocephin and azithromycin for now, monitor cultures. DVT hep sq Cardiac diet Full Code.
[2017-03-16] MEDS: ACETAMINOPHEN 650 MG/65 ML BOTTLE IV SCH ×4 (00:24→17:32)
[2017-03-16] MEDS: VANCOMYCIN 1,500 MG in 0.9 % SODIUM CHLORIDE 500 ML IV SCH ×2 (00:25→12:26)
[2017-03-16] MEDS: PIPERACILLIN SODIUM/TAZOBACTAM 3.375 GM in DEXTROSE 5% IN WATER 50 ML IV SCH ×4 (00:25→17:31)
[2017-03-16] MEDS: 0.9 % SODIUM CHLORIDE 1,000 ML IV SCH ×3 (01:50→14:56)
[2017-03-16] MEDS: ALBUTEROL SULFATE 2.5 MG/3 ML NEBULIZER NEB SCH ×4 (01:50→19:41)
[2017-03-16] MEDS: 0.9 % SODIUM CHLORIDE 10 ML SYRINGE IV SCH ×3 (06:12→20:10)
[2017-03-16] MEDS: METOCLOPRAMIDE 10 MG/2 ML VIAL IV SCH ×4 (07:15→20:10)
[2017-03-16 07:20] LABS: Basophils # (Auto) 0 K/mcL (0.0-0.3); Basophils % (Auto) 0.4 % (0.0-2.0); Eosinophils # (Auto) 0.1 K/mcL (0.0-0.7); Eosinophils % (Auto) 0.5 % (0.0-7.0); Granulocytes % (Auto) 83.4 % (38.0-78.0); Lymphocytes # (Auto) 1.4 K/mcL (1.5-4.8); Lymphocytes % (Auto) 10.8 % (15.5-49.0); Mean Corpuscular HGB Conc 33.5 g/dL (31.0-36.0); Mean Corpuscular Hemoglobin 29.5 pg (26.0-34.0); Monocytes # (Auto) 0.6 K/mcL (0.1-0.9); Monocytes % (Auto) 4.9 % (1.0-12.0); Platelet Count 153 K/mcL (140-440); RBC 3.87 M/mcL (4.00-5.20); Red Cell Distribution Width 15.3 % (11.5-14.5)
[2017-03-16 07:47] LABS: ALT/SGPT 17 U/l (0-40); Albumin 2.8 gm/dL (3.2-5.2); Albumin/Globulin Ratio 0.7 (1.0-2.3); Alkaline Phosphatase 78 U/L (39-117); Bilirubin,Direct < 0.2 mg/dL (0.0-0.3); Blood Urea Nitrogen 3 mg/dl (6-20); Gamma Glutamyl Transpeptidase 30 U/L (5-36); Uric Acid 3.1 mg/dL (2.5-8.0)
[2017-03-16] MEDS: ONDANSETRON 4 MG/2 ML VIAL IV PRN (09:32)
[2017-03-16] MEDS: HEPARIN 5,000 UNIT/ML VIAL SQ SCH ×2 (09:39→20:10)
[2017-03-16] MEDS: DOCUSATE SODIUM 100 MG CAPSULE PO SCH ×2 (09:43→21:41)
[2017-03-16] MEDS: AZITHROMYCIN 250 MG in DEXTROSE 5% IN WATER 250 ML IV SCH (10:19)
--- NOTE | 2017-03-16 12:10 | Internal Med Progress Note ---
Medical - PN: Subj Patient information: Note initiated : 03/16/17 at 12:10 pm Service Date, if different from initiated Date: [] Patient: Zhane Meredith a 51 y/o F admitted on 03/14/17 for Abd Pain, Pain with Urination, Fever/UTI, Sepsis. Chief Complaint: [] Interval history: Ms. Meredith is a 51 year old Female with h/o asthma presented to the ER today with compalitns of weakness fever and abodminal pain, knee pain. The patient was in some distress from pain, and was unable to provide a good time frame She notes that she had a left knee replacement done early this year by Dr Glasgow. the patient has been having some pain in the left knee going on for the last 1 month, taking some otc meds and ice packs to help deal with same. Over the last few days she notes pain has gotten worse and she has found it difficult to walk to day due to pain and weakness. Predominantly weakness. she notes that her acute worsening happened after a flu shot I believe given in [facility], the patient notes she was sick on wednesday, with lower abdmoinal pain and weakness, had some stiffness in the neck, and upper back. She notes she had lower abdominal cramping pain, non radiating assocated with increased frequency of urinartion, she notes pain in the urethral region as if somebody pulled a catheters out of there. The patient has been having some constipatin. She admits to some headaches, and dizziness. Some nausea and vomiting. some epigastric pain, but significant hypogastric pain. She admits having pain in multipe regions of her body, unable to localize well. In the ER she was febrile with tmax of 104.8, HR 120-130, BP stable, 96% on room air. She had a positive ua on urine analsysis, elevaetd wbc count to 13K, regino f lab work was unremakrable. The patient had CT abdomen which was reported neg, given her high temp ER physian performed a LP which showed clear liquid studies are pending During my eval the patient also ahd painful left knee,which was warmer than the right, and had some effusion. Er Provider Dr Reynaga tapped the joint and fluid sent for analysis, hemorrhage cloudy liquid was aspirated. patient was admitted to the hospital for further management. March 14 Patient seen examined, no acute overnight issues, patient having headaches since last night still has lower abdominal pain she is afebrile now, and heart rate is better CSF and Synovial fluid not suggestive as etiology of her infection procalcitonin is elevated, UTI likely, but CXR and CT abdomen also show a some infiltrate indicative of broncho pneumonia. Will add azithromycin to her regime. continue with vanco and rocephin for UTI, however vanco should cover any possible joint/ clinical program director infection. Will monitor culture results, discontinue vanco once cultures are negative. March 15 Patient seen examined, no acute overnight events, pt mildly febrile still complains of nausea and abdominal pain headache not as much today March 16: Today, the patient continues to feel poorly. She complains of nausea and dry heaves, significant headache, continued abdominal discomfort. She also notes today that her throat is very sore and that she is having a hard time swallowing. She continues to have moderate knee pain, but thinks it is better since they removed fluid from it in the emergency room. She reports her abdominal pain continues to be both in the epigastric area as well as the suprapubic area Otherwise, she denies fever or chills, chest pain or palpitations, cough or shortness of breath, diarrhea or constipation, dysuria. Medical history: OA Asthma HTN ? lupus depression - Constitutional Vitals: Vital Signs Temp Pulse Resp BP Pulse Ox 98.3 F 72 12 109/71 98 03/16/17 03:32 03/16/17 07:20 03/16/17 07:20 03/16/17 03:32 03/16/17 08:43 Period Temp Pulse Resp BP Sys/Espinoza Pulse Ox Last 24 Hr 97.8 F-99.4 F 68-88 12-16 106-115/68-78 93-98 Intake and Output 03/15/17 03/16/17 03/16/17 21:59 05:59 13:59 Intake Total 1385 / 1385 1365 / 1365 50 / 50 Output Total 2250 / 2250 1400 / 1400 2130 / 2130 Balance -865 / -865 -35 / -35 -2079 / -0 Weight 236 lb Intake & Output: Intake & Output 10/30/17 10/31/17 10/31/17 21:59 05:59 13:59 Intake Total 1385 / 1385 1365 / 1365 50 / 50 Output Total 2250 / 2250 1400 / 1400 2130 / 2130 Balance -865 / -865 -35 / -35 -2079 / -2079 Weight 236 lb Intake: IV 1135 / 1135 1115 / 1115 50 / 50 Sodium Chloride 0.9% 1,000 ml @ 1000 / 1000 125 mls/hr IV .Q8H [facility] Rx#: [id number] Zosyn 3.375 gm In Dextrose 5% 50 / 50 50 / 50 50 / 50 in Water 50 ml @ 100 mls/hr IV Q6H [facility] Rx#:[id number] Vancomycin 1,500 mg In Sodium 500 / 500 Chloride 0.9% 500 ml @ 333.3 mls/hr IV Q12H [facility] Rx#: [id number] Oral 250 / 250 250 / 250 Output: Urine Catheter Amount 300 / 300 Void Amount 1250 / 1250 1400 / 1400 925 / 925 Urine/Stool Mix 900 / 900 Stool 905 / 905 Emesis 100 / 100 Other: # Voids 1 1 # Bowel Movements 1 1 On exam, the patient is lying on her right side, very still. She is complaining of headache. She appears uncomfortable. Pharynx: Pharynx appears normal. Tonsils are quite large, and red, but I do not see any exudates. Neck is supple without obvious lymphadenopathy or JVD. Cardiac exam shows regular rate and rhythm. Lungs are clear to auscultation. Abdomen: Is quite obese. There is some tenderness in the epigastric area as well as the suprapubic area but this appears mild to moderate, without guarding or rebound. Bowel sounds are somewhat hypoactive. Extremities show no edema. Neurologic: Is grossly nonfocal. Medical - PN: Obj Da - Labs CBC & Chem 7: 03/16/17 05:45 03/16/17 05:45 Labs: Abnormal Lab Results 03/16/17 03/16/17 03/15/17 05:45 05:45 04:44 WBC 13.0 H RBC 3.87 L Hgb 11.4 L Hct 34.0 L RDW 15.3 H Plt Count Gran % 83.4 H Lymph % (Auto) 10.8 L Gran # 10.8 H Lymph # (Auto) 1.4 L ESR Potassium 3.1 L BUN 3 L 4 L Creatinine 0.5 L Calcium 8.3 L POC WB Ioniz Calcium Phosphorus 1.9 L 2.3 L C-Reactive Protein Albumin 2.8 L 2.8 L Globulin 3.8 H Albumin/Globulin Ratio 0.7 L 0.8 L Ur Leukocyte Esterase Urine WBC CSF Lymphocytes Synovial Neutrophils CALLI Screen Complement C4 03/15/17 03/14/17 03/14/17 04:44 15:25 06:06 WBC 16.7 H RBC 3.64 L Hgb 10.6 L Hct 32.3 L RDW 15.5 H Plt Count 136 L Gran % 89.8 H Lymph % (Auto) 5.8 L Gran # 15.0 H Lymph # (Auto) 1.0 L ESR Potassium BUN Creatinine Calcium 7.7 L POC WB Ioniz Calcium Phosphorus C-Reactive Protein Albumin 3.0 L Globulin 3.9 H Albumin/Globulin Ratio 0.8 L Ur Leukocyte Esterase Urine WBC CSF Lymphocytes Synovial Neutrophils CALLI Screen Pos 1:80 or greater A Complement C4 8.4 L 03/14/17 03/14/17 03/14/17 06:06 06:05 06:05 WBC 15.7 H RBC Hgb 11.9 L Hct 35.3 L RDW 15.9 H Plt Count Gran % 88.0 H Lymph % (Auto) 8.3 L Gran # 13.8 H Lymph # (Auto) 1.3 L ESR 38 H Potassium BUN Creatinine Calcium POC WB Ioniz Calcium Phosphorus C-Reactive Protein 8.8 H Albumin Globulin Albumin/Globulin Ratio Ur Leukocyte Esterase Urine WBC CSF Lymphocytes Synovial Neutrophils CALLI Screen Complement C4 03/13/17 03/13/17 03/13/17 23:29 22:06 16:38 WBC RBC Hgb Hct RDW Plt Count Gran % Lymph % (Auto) Gran # Lymph # (Auto) ESR Potassium BUN Creatinine Calcium POC WB Ioniz Calcium 1.01 L Phosphorus C-Reactive Protein Albumin Globulin Albumin/Globulin Ratio Ur Leukocyte Esterase Urine WBC CSF Lymphocytes 83 H Synovial Neutrophils 68 H CALLI Screen Complement C4 03/13/17 03/13/17 03/13/17 16:10 15:55 15:55 WBC 13.8 H RBC Hgb Hct RDW 15.3 H Plt Count Gran % 84.6 H Lymph % (Auto) 11.1 L Gran # 11.6 H Lymph # (Auto) ESR Potassium BUN Creatinine Calcium POC WB Ioniz Calcium Phosphorus C-Reactive Protein Albumin Globulin 4.1 H Albumin/Globulin Ratio Ur Leukocyte Esterase 500 A Urine WBC 14 H CSF Lymphocytes Synovial Neutrophils CALLI Screen Complement C4 March 16: Neck CT:IMPRESSION: 1. Severe bilateral palatine tonsillitis. No evidence of abscess. Moderately enlarged reactive deep cervical lymph nodes are seen in the adjacent cervical and jugular regions. 2. 14.8 mm right low-attenuation lesion in the inferior right thyroid. Suggest six month thyroid ultrasound to reassess. It is most likely a colloid cyst or benign adenoma 3. C-spine degeneration as described Sinus CT: IMPRESSION: 1. Sinuses are normal. 2. Moderate rhinitis. Nasal septal deviation with right bone bar extending across the right nasal cavity. This can be a predisposing factor for chronic headaches 3. 7 mm radiolucent lesion in the left supraorbital region of the skull with a 5 mm central calcification. It is almost certainly insignificant, particularly in the absence of tenderness on palpation this region. Suggest plain films of the sinuses in 3-6 months to ensure stability Chest x-ray: PICC line is near the tricuspid valve plane, nurses instructed to withdraw 4 cm. March 15: Stool is negative for C. difficile. Knee aspiration, synovial fluid: Shows moderate white blood cells, but no organisms. No growth after 3 days. Next Spinal fluid: Shows rare mononuclear white blood cells. No neutrophils. No organisms. No growth after 3 days. Next Blood cultures are negative. Next Urine culture is negative. March 14: Sed rate is high at 38 March 13 Lactic acid is normal at 1.8 Initial pro-calcitonin was elevated at 1.6, follow-up is lower at 1.3 Urinalysis: Showed 500 leukocyte esterase, 14 white blood cells, no bacteria. Culture was negative. CSF analysis: Shows 88 cells, 83 lymphocytes, 17 monocytes. Glucose is normal at 58. Total protein is normal at 26 Synovial fluid: Is bloody. 1481 red cells are noted. Out of 100 cells, 68 her neutrophils, which is elevated. CALLI screen is positive at 1-80 Complement C4 is low at 8.4. C3 is normal at 139. Meds: Medications Al Hydrox/Mg Hydrox/Simethicone (Maalox) 30 ml PO Q6HP PRN PRN Reason: Dyspepsia Last Admin: 03/16/17 09:30 Dose: 30 ml Albuterol Sulfate (Ventolin) 2.5 mg NEB Q6HRT [facility] Last Admin: 03/16/17 07:30 Dose: 2.5 mg Docusate Sodium (Colace) 100 mg PO BID [facility] Last Admin: 03/16/17 09:43 Dose: Not Given Heparin Sodium (Porcine) (Heparin) 5,000 unit SQ Q12 [facility] Last Admin: 03/16/17 09:39 Dose: 5,000 unit Heparin Sodium (Porcine) (Heparin Flush) 2 ml IV Q12 [facility] Last Admin: 03/16/17 11:44 Dose: Not Given Hydromorphone HCl (Dilaudid) 1 mg IV Q2HP PRN PRN Reason: Pain Last Admin: 03/15/17 17:13 Dose: 1 mg Sodium Chloride (Sodium Chloride 0.9%) 1,000 mls @ 125 mls/hr IV .Q8H [facility] Last Admin: 03/16/17 10:10 Dose: Not Given Acetaminophen (Ofirmev) 650 mg in 65 mls @ 130 mls/hr IV Q6H [facility] Last Admin: 03/16/17 06:12 Dose: 200 mls/hr Vancomycin HCl 1,500 mg/ (Sodium Chloride) 500 mls @ 333.3 mls/hr IV Q12H [facility] Last Admin: 03/16/17 00:25 Dose: 100 mls/hr Azithromycin 250 mg/ Dextrose 250 mls @ 250 mls/hr IV Q24H [facility] Stop: 03/18/17 10:59 Last Admin: 03/16/17 10:19 Dose: 250 mls/hr Piperacillin Sod/Tazobactam (Sod 3.375 gm/ Dextrose) 50 mls @ 100 mls/hr IV Q6H [facility] Last Admin: 03/16/17 11:46 Dose: 100 mls/hr Metoclopramide HCl (Reglan) 5 mg IV ACHS [facility] Last Admin: 03/16/17 11:47 Dose: 5 mg Naloxone HCl (Narcan) 0.1 mg IV Q2MIN PRN PRN Reason: Opiate Reversal Ondansetron HCl (Zofran) 4 mg IV Q6HP PRN PRN Reason: Nausea And Vomiting Last Admin: 03/16/17 09:32 Dose: 4 mg Mometasone Furoate [ (Asmanex Hfa] Inhaler) 1 dose INH DAILY [facility] Last Admin: 03/16/17 11:44 Dose: Not Given Desonide [Tridesilon (] Cream) 1 dose TOPICAL DAILYP PRN PRN Reason: Skin Irritation Sodium Chloride (Saline Flush) 10 ml IV Q8 [facility] Last Admin: 03/16/17 06:12 Dose: Not Given Sodium Chloride (Saline Flush) 10 ml IV UD PRN PRN Reason: FLUSH Vancomycin HCl (Vancomycin Per Pharmacy) 1 order IV UD [facility] Medical - PN: A/P - Time Spent With Patient Total time spent is greater than 50% in coordination of care (as documented) at patient's floor/unit and/or counseling patient: Greater than 35 minutes - Narrative A/P Narrative: A/P 1. Infectious disease. Sepsis. Fever of uncertain origin/infectious diseases. Patient has had numerous complaints, including abdominal pain, headache, knee pain. Today she complained of throat pain. CT of her neck does show severe tonsillitis, which could certainly explain her throat pain. This may explain her fever as well. -Continue with Zosyn and vancomycin. Leukocytosis is slowly improving. -Patient has ongoing knee pain, although this appears somewhat improved. I am trying to contact her orthopedist, Dr. Galsgow, to see if he wants any further evaluation of her knee prosthesis. -Spinal tap did not show acute meningitis, but does show a fair number of lymphocytes. She may have an aseptic viral meningitis. If headaches persist, she may want to have further follow-up with either infectious diseases or neurology. -Urinalysis showed significant leukocytosis, but culture did not grow anything. 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 CT scan showed mildly abnormal left adnexal venous plexus. -There was a question of subtle interstitial infiltrate at the right lung base on admission. This resolved on follow-up chest films. 2. ENT. 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 Patient should have follow-up with ENT after discharge. CT also showed a small lesion in the left supraorbital region of the skull, likely insignificant. She should have plain film x-ray in 3-6 months to ensure stability. CT also showed a 14 mm lesion in the inferior right thyroid. Six-month follow- up thyroid ultrasound is suggested. #3. Pulmonary. History of asthma. Next 4. Obesity. 5. Rheumatologic. Patient has abnormal CALLI and complement screens. She may need further follow- up as an outpatient. #6. DVT hep sq #7. Full Code. Approximately 40 minutes was spent today, reviewing the patient's record and test results, interviewing and examining her, and plan of care with staff, reviewing case with Dr. Smallwood of ENT by telephone, trying to contact orthopedics , and writing orders.
--- NOTE | 2017-03-16 14:16 | XRay Report ---
CLINICAL INFORMATION: PICC placement COMPARISON: None. FINDINGS: Right PICC line tip is near the tricuspid valve plane. Nurses instructed to withdraw the line 4 cm. Cardiac mediastinal silhouette and pulmonary vessels are normal. The lungs are clear. No effusions. IMPRESSION: No acute cardiac pulmonary disease. PICC line tip is near the tricuspid valve plane please see above Interpreted and Authenticated by: Dawson Rosenbaum 03/16/17
[2017-03-16] MEDS ORDERED: IOPAMIDOL 100 ML BOTTLE IV ONE (16:01)
--- NOTE | 2017-03-16 16:33 | Cat Scan Report ---
CLINICAL INFORMATION: Fever and severe throat pain COMPARISON: None. TECHNIQUE: 80 cc of [id number] were injected intravenously and 25 seconds later, 2.5 mm helical slices were obtained from the inferior orbit through the supraclavicular region. Following reconstruction, 2.5 mm sagittal and coronal reformations were processed. The exam was reviewed at bone and soft tissue windows FINDINGS: There is marked enlargement of the palatine tonsils - each is approximately 3 cm AP dimension. No evidence of abscess. In addition, there are multiple moderately enlarged deep cervical lymph nodes - predominantly. Predominantly the upper jugular and carotid regions. Mildly enlarged lymph nodes in the posterior cervical region as well. The jugular and carotid vascular structures are normal. There is a 14.8 mm well-defined low-attenuation lesion in the inferior pole of the right thyroid remainder of the thyroid is normal. True and false focal cords, epiglottis, aryepiglottic folds, tongue base and prevertebral soft tissues are normal. Both parotid and submandibular glands are unremarkable. Lung apices are normal. Cervical spine is anatomically aligned and there are no osseous abnormalities. At C5-6, moderate broad disc spur complex results in mild central canal and moderate bilateral lateral recess IV foraminal narrowing potentially impinging the exiting C6 nerve roots. At C6-7, mild broad disc protrusion left-sided asymmetry results in mild left lateral recess narrowing. IMPRESSION: 1. Severe bilateral palatine tonsillitis. No evidence of abscess. Moderately enlarged reactive deep cervical lymph nodes are seen in the adjacent cervical and jugular regions 2. 14.8 mm right low-attenuation lesion in the inferior right thyroid. Suggest six month thyroid ultrasound to reassess. It is most likely a colloid cyst or benign adenoma 3. C-spine degeneration as described Interpreted and Authenticated by: Dawson Rosenbaum 03/16/17
--- NOTE | 2017-03-16 16:38 | Cat Scan Report ---
CLINICAL INFORMATION: Fever and upper throat pain COMPARISON: None. TECHNIQUE: 2.5 mm helical slices were obtained from the inferior maxillary sinuses through the frontal sinuses. Axial and coronal reformatted images were processed and reviewed at bone and soft tissue windows. FINDINGS: The frontal, ethmoid, sphenoid, and maxillary air cells are clear. The anterior ostiomeatal complexes, frontal recesses and sphenoethmoidal recesses disease are grossly normal. Moderate mucosal thickening in the nasal septum and turbinates.] Nasal septal deviation is noted with a bar extending across the right nasal cavity. The region of the orbits are unremarkable. There is a 7 mm well-circumscribed radiolucent lesion in the left supraorbital skull with a 4.7 cm calcification centrally. This lesion was actually seen on remote 2000 CT, but, at that time, there is no central calcification. It is almost certainly insignificant - particularly in the absence of tenderness in this region. No other osseous abnormalities. Mild degenerative changes noted in the left TMJ . The petrous temporal regions are normal IMPRESSION: 1. Sinuses are normal. 2. Moderate rhinitis. Nasal septal deviation with right bone bar extending across the right nasal cavity. This can be a predisposing factor for chronic headaches 3. 7 mm radiolucent lesion in the left supraorbital region of the skull with a 5 mm central calcification. It is almost certainly insignificant, particularly in the absence of tenderness on palpation this region. Suggest plain films of the sinuses in 3-6 months to ensure stability Interpreted and Authenticated by: Dawson Rosenbaum 03/16/17
[2017-03-17] MEDS: ACETAMINOPHEN 650 MG/65 ML BOTTLE IV SCH ×4 (00:33→17:30)
[2017-03-17] MEDS: VANCOMYCIN 1,500 MG in 0.9 % SODIUM CHLORIDE 500 ML IV SCH ×2 (00:33→13:02)
[2017-03-17] MEDS: PIPERACILLIN SODIUM/TAZOBACTAM 3.375 GM in DEXTROSE 5% IN WATER 50 ML IV SCH ×4 (00:34→17:56)
[2017-03-17] MEDS: 0.9 % SODIUM CHLORIDE 1,000 ML IV SCH (00:34)
[2017-03-17] MEDS: ALBUTEROL SULFATE 2.5 MG/3 ML NEBULIZER NEB SCH ×4 (03:49→19:23)
[2017-03-17] MEDS: 0.9 % SODIUM CHLORIDE 10 ML SYRINGE IV SCH ×3 (05:01→21:08)
[2017-03-17 06:26] LABS: Basophils # (Auto) 0 K/mcL (0.0-0.3); Basophils % (Auto) 0.4 % (0.0-2.0); Eosinophils # (Auto) 0.1 K/mcL (0.0-0.7); Eosinophils % (Auto) 2.1 % (0.0-7.0); Granulocytes % (Auto) 67.4 % (38.0-78.0); Lymphocytes # (Auto) 1.6 K/mcL (1.5-4.8); Lymphocytes % (Auto) 22.9 % (15.5-49.0); Mean Cell Volume 87.3 fL (80.0-100.0); Mean Corpuscular HGB Conc 33.5 g/dL (31.0-36.0); Mean Corpuscular Hemoglobin 29.2 pg (26.0-34.0); Monocytes # (Auto) 0.5 K/mcL (0.1-0.9); Monocytes % (Auto) 7.2 % (1.0-12.0); Platelet Count 174 K/mcL (140-440); RBC 3.62 M/mcL (4.00-5.20); Red Cell Distribution Width 15.6 % (11.5-14.5)
[2017-03-17 06:55] LABS: ALT/SGPT 18 U/l (0-40); Albumin 3.2 gm/dL (3.2-5.2); Albumin/Globulin Ratio 0.9 (1.0-2.3); Alkaline Phosphatase 72 U/L (39-117); Bilirubin,Direct < 0.2 mg/dL (0.0-0.3); Blood Urea Nitrogen 4 mg/dl (6-20); Gamma Glutamyl Transpeptidase 52 U/L (5-36); Uric Acid 2.5 mg/dL (2.5-8.0)
[2017-03-17] MEDS: METOCLOPRAMIDE 10 MG/2 ML VIAL IV SCH ×4 (07:20→21:08)
[2017-03-17] MEDS ORDERED: POTASSIUM CHLORIDE 20 MEQ in 0.9 % SODIUM CHLORIDE 1,000 ML IV SCH (08:00)
[2017-03-17] MEDS ORDERED: POTASSIUM CHLORIDE 40 MEQ in DEXTROSE 5% IN WATER 500 ML IV ONE (08:00)
[2017-03-17] MEDS: NACL 0.9% W/KCL 20MEQ 1,000 ML IV SCH (08:15)
[2017-03-17] MEDS: AZITHROMYCIN 250 MG in DEXTROSE 5% IN WATER 250 ML IV SCH (09:37)
[2017-03-17] MEDS: DOCUSATE SODIUM 100 MG CAPSULE PO SCH ×2 (09:37→21:08)
[2017-03-17] MEDS: HEPARIN 5,000 UNIT/ML VIAL SQ SCH ×2 (09:37→21:07)
--- NOTE | 2017-03-17 13:15 | Internal Med Progress Note ---
Medical - PN: Subj Patient information: Note initiated : 03/17/17 at 1:15 pm Service Date, if different from initiated Date: [] Patient: Zhane Meredith a 51 y/o F admitted on 03/14/17 for Abd Pain, Pain with Urination, Fever/UTI, Sepsis. Chief Complaint: [] Interval history: Ms. Meredith is a 51 year old Female with h/o asthma presented to the ER today with compalitns of weakness fever and abodminal pain, knee pain. The patient was in some distress from pain, and was unable to provide a good time frame She notes that she had a left knee replacement done early this year by Dr Glasgow. the patient has been having some pain in the left knee going on for the last 1 month, taking some otc meds and ice packs to help deal with same. Over the last few days she notes pain has gotten worse and she has found it difficult to walk to day due to pain and weakness. Predominantly weakness. she notes that her acute worsening happened after a flu shot I believe given in [facility], the patient notes she was sick on wednesday, with lower abdmoinal pain and weakness, had some stiffness in the neck, and upper back. She notes she had lower abdominal cramping pain, non radiating assocated with increased frequency of urinartion, she notes pain in the urethral region as if somebody pulled a catheters out of there. The patient has been having some constipatin. She admits to some headaches, and dizziness. Some nausea and vomiting. some epigastric pain, but significant hypogastric pain. She admits having pain in multipe regions of her body, unable to localize well. In the ER she was febrile with tmax of 104.8, HR 120-130, BP stable, 96% on room air. She had a positive ua on urine analsysis, elevaetd wbc count to 13K, regino f lab work was unremakrable. The patient had CT abdomen which was reported neg, given her high temp ER physian performed a LP which showed clear liquid studies are pending During my eval the patient also ahd painful left knee,which was warmer than the right, and had some effusion. Er Provider Dr Reynaga tapped the joint and fluid sent for analysis, hemorrhage cloudy liquid was aspirated. patient was admitted to the hospital for further management. March 14 Patient seen examined, no acute overnight issues, patient having headaches since last night still has lower abdominal pain she is afebrile now, and heart rate is better CSF and Synovial fluid not suggestive as etiology of her infection procalcitonin is elevated, UTI likely, but CXR and CT abdomen also show a some infiltrate indicative of broncho pneumonia. Will add azithromycin to her regime. 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 Will monitor culture results, discontinue vanco once cultures are negative. March 15 Patient seen examined, no acute overnight events, pt mildly febrile still complains of nausea and abdominal pain headache not as much today March 16: Today, the patient continues to feel poorly. She complains of nausea and dry heaves, significant headache, continued abdominal discomfort. She also notes today that her throat is very sore and that she is having a hard time swallowing. She continues to have moderate knee pain, but thinks it is better since they removed fluid from it in the emergency room. She reports her abdominal pain continues to be both in the epigastric area as well as the suprapubic area Otherwise, she denies fever or chills, chest pain or palpitations, cough or shortness of breath, diarrhea or constipation, dysuria. March 17: Today, the patient notes that she is feeling quite a bit better. She now recalls that she has had strep throat 3 times in the past year or 2. She also notes that she has had a very bad breath and a bad taste in her mouth on and off for about the last year. She says she kept thinking she needed to brush her teeth and her tongue more. Today, her throat pain is improved. Also her generalized pain, including abdominal pain and knee pain seems to be improving. She denies fever chills, chest pain or shortness of breath. She denies nausea or vomiting or dysuria. [place] white blood cell count is down to normal today. Unfortunately potassium is quite low this morning. This was replaced IV. Medical history: OA Asthma HTN ? lupus depression - Constitutional Vitals: Vital Signs Temp Pulse Resp BP Pulse Ox 98.4 F 72 18 106/71 93 03/17/17 12:00 03/17/17 04:00 03/17/17 12:00 03/17/17 12:00 03/17/17 12:00 Period Temp Pulse Resp BP Sys/Espinoza Pulse Ox Last 24 Hr 96.9 F-98.5 F 65-72 12-18 105-115/66-77 93-96 Intake and Output 03/16/17 03/17/17 03/17/17 21:59 05:59 13:59 Intake Total 1425 / 1425 2430 / 2430 315 / 315 Output Total 700 / 700 Balance 1425 / 1425 1730 / 1730 315 / 315 Weight 238 lb Intake & Output: Intake & Output 03/16/17 03/17/17 03/17/17 21:59 05:59 13:59 Intake Total 1425 / 1425 2430 / 2430 315 / 315 Output Total 700 / 700 Balance 1425 / 1425 1730 / 1730 315 / 315 Weight 238 lb Intake: IV 615 / 615 1730 / 1730 315 / 315 Sodium Chloride 0.9% 1,000 ml @ 1000 / 1000 125 mls/hr IV .Q8H [facility] Rx#: [id number] Zithromax 250 mg In Dextrose 5% 250 / 250 in Water 250 ml @ 250 mls/hr IV Q24H [facility] Rx#:[id number] Zosyn 3.375 gm In Dextrose 5% 50 / 50 100 / 100 in Water 50 ml @ 100 mls/hr IV Q6H [facility] Rx#:[id number] Vancomycin 1,500 mg In Sodium 500 / 500 500 / 500 Chloride 0.9% 500 ml @ 333.3 mls/hr IV Q12H [facility] Rx#: [id number] Oral 810 / 810 700 / 700 Output: Void Amount 700 / 700 Other: Meal Dinner Percent of Meal Consumed 100% Feeding Ability Independent # Voids 1 # Bowel Movements 1 Neck is supple without obvious lymphadenopathy or JVD. Cardiac exam shows regular rate and rhythm. Lungs are clear to auscultation. Abdomen: Is quite obese. Abdomen is still somewhat tender, but seems less so than yesterday. Bowel sounds are active. Extremities show no edema. Neurologic: Is grossly nonfocal. Medical - PN: Obj Da - Labs CBC & Chem 7: 03/17/17 04:00 03/17/17 04:00 Labs: Abnormal Lab Results 03/17/17 03/17/17 03/16/17 04:00 04:00 05:45 WBC RBC 3.62 L Hgb 10.6 L Hct 31.6 L RDW 15.6 H Plt Count Gran % Lymph % (Auto) Gran # Lymph # (Auto) Potassium 2.9 L* BUN 4 L 3 L Creatinine 0.5 L 0.5 L Calcium 8.3 L Phosphorus 2.1 L 1.9 L GGT 52 H Albumin 2.8 L Globulin 3.8 H Albumin/Globulin Ratio 0.9 L 0.7 L CALLI Screen Complement C4 03/16/17 03/15/17 03/15/17 05:45 04:44 04:44 WBC 13.0 H 16.7 H RBC 3.87 L 3.64 L Hgb 11.4 L 10.6 L Hct 34.0 L 32.3 L RDW 15.3 H 15.5 H Plt Count 136 L Gran % 83.4 H 89.8 H Lymph % (Auto) 10.8 L 5.8 L Gran # 10.8 H 15.0 H Lymph # (Auto) 1.4 L 1.0 L Potassium 3.1 L BUN 4 L Creatinine Calcium 8.3 L Phosphorus 2.3 L GGT Albumin 2.8 L Globulin Albumin/Globulin Ratio 0.8 L CALLI Screen Complement C4 03/14/17 15:25 WBC RBC Hgb Hct RDW Plt Count Gran % Lymph % (Auto) Gran # Lymph # (Auto) Potassium BUN Creatinine Calcium Phosphorus GGT Albumin Globulin Albumin/Globulin Ratio CALLI Screen Pos 1:80 or greater A Complement C4 8.4 L March 16: Neck CT:IMPRESSION: 1. Severe bilateral palatine tonsillitis. No evidence of abscess. Moderately enlarged reactive deep cervical lymph nodes are seen in the adjacent cervical and jugular regions. 2. 14.8 mm right low-attenuation lesion in the inferior right thyroid. Suggest six month thyroid ultrasound to reassess. It is most likely a colloid cyst or benign adenoma 3. C-spine degeneration as described Sinus CT: IMPRESSION: 1. Sinuses are normal. 2. Moderate rhinitis. Nasal septal deviation with right bone bar extending across the right nasal cavity. This can be a predisposing factor for chronic headaches 3. 7 mm radiolucent lesion in the left supraorbital region of the skull with a 5 mm central calcification. It is almost certainly insignificant, particularly in the absence of tenderness on palpation this region. Suggest plain films of the sinuses in 3-6 months to ensure stability Chest x-ray: PICC line is near the tricuspid valve plane, nurses instructed to withdraw 4 cm. March 15: Stool is negative for C. difficile. Knee aspiration, synovial fluid: Shows moderate white blood cells, but no organisms. No growth after 3 days. Next Spinal fluid: Shows rare mononuclear white blood cells. No neutrophils. No organisms. No growth after 3 days. Next Blood cultures are negative. Next Urine culture is negative. March 14: Sed rate is high at 38 March 13 Lactic acid is normal at 1.8 Initial pro-calcitonin was elevated at 1.6, follow-up is lower at 1.3 Urinalysis: Showed 500 leukocyte esterase, 14 white blood cells, no bacteria. Culture was negative. CSF analysis: Shows 88 cells, 83 lymphocytes, 17 monocytes. Glucose is normal at 58. Total protein is normal at 26 Synovial fluid: Is bloody. 1481 red cells are noted. Out of 100 cells, 68 her neutrophils, which is elevated. CALLI screen is positive at 1-80 Complement C4 is low at 8.4. C3 is normal at 139. Meds: Medications Al Hydrox/Mg Hydrox/Simethicone (Maalox) 30 ml PO Q6HP PRN PRN Reason: Dyspepsia Last Admin: 03/16/17 09:30 Dose: 30 ml Albuterol Sulfate (Ventolin) 2.5 mg NEB Q6HRT [facility] Last Admin: 03/17/17 11:05 Dose: Not Given Docusate Sodium (Colace) 100 mg PO BID [facility] Last Admin: 03/17/17 09:37 Dose: Not Given Heparin Sodium (Porcine) (Heparin) 5,000 unit SQ Q12 [facility] Last Admin: 03/17/17 09:37 Dose: Not Given Heparin Sodium (Porcine) (Heparin Flush) 2 ml IV Q12 [facility] Last Admin: 03/17/17 09:38 Dose: 2 ml Hydromorphone HCl (Dilaudid) 1 mg IV Q2HP PRN PRN Reason: Pain Last Admin: 03/15/17 17:13 Dose: 1 mg Acetaminophen (Ofirmev) 650 mg in 65 mls @ 130 mls/hr IV Q6H [facility] Last Infusion: 03/17/17 12:16 Dose: Infused Vancomycin HCl 1,500 mg/ (Sodium Chloride) 500 mls @ 333.3 mls/hr IV Q12H [facility] Last Admin: 03/17/17 13:02 Dose: 333 mls/hr Azithromycin 250 mg/ Dextrose 250 mls @ 250 mls/hr IV Q24H [facility] Stop: 03/18/17 10:59 Last Infusion: 03/17/17 10:55 Dose: Infused Piperacillin Sod/Tazobactam (Sod 3.375 gm/ Dextrose) 50 mls @ 100 mls/hr IV Q6H [facility] Last Admin: 03/17/17 12:15 Dose: 100 mls/hr Potassium Chloride/Sodium Chloride (Nacl 0.9% W/Kcl 20meq 1000ml) 1,000 mls @ 80 mls/hr IV .[id number] [facility] Last Admin: 03/17/17 08:15 Dose: 80 mls/hr Metoclopramide HCl (Reglan) 5 mg IV ACHS [facility] Last Admin: 03/17/17 11:29 Dose: 5 mg Naloxone HCl (Narcan) 0.1 mg IV Q2MIN PRN PRN Reason: Opiate Reversal Ondansetron HCl (Zofran) 4 mg IV Q6HP PRN PRN Reason: Nausea And Vomiting Last Admin: 03/16/17 09:32 Dose: 4 mg Mometasone Furoate [ (Asmanex Hfa] Inhaler) 1 dose INH DAILY [facility] Last Admin: 03/17/17 09:38 Dose: Not Given Desonide [Tridesilon (] Cream) 1 dose TOPICAL DAILYP PRN PRN Reason: Skin Irritation Sodium Chloride (Saline Flush) 10 ml IV Q8 [facility] Last Admin: 03/17/17 13:03 Dose: Not Given Sodium Chloride (Saline Flush) 10 ml IV UD PRN PRN Reason: FLUSH Vancomycin HCl (Vancomycin Per Pharmacy) 1 order IV UD [facility] Medical - PN: A/P - Time Spent With Patient Total time spent is greater than 50% in coordination of care (as documented) at patient's floor/unit and/or counseling patient: 25 - 35 minutes - Narrative A/P Narrative: A/P 1. Infectious disease. Sepsis. Fever of uncertain origin/infectious diseases. Patient has had numerous complaints, including abdominal pain, headache, knee pain. CT of her neck does show severe tonsillitis, which could certainly explain her throat pain. This may explain her fever as well. -Continue with Zosyn and vancomycin. Leukocytosis is resolving. I am hopeful that her fever source may have actually been her ongoing tonsillitis. She is feeling quite a bit better today, and hopefully we can consider switching her over to oral antibiotics tomorrow. -Patient has ongoing knee pain, although this appears somewhat improved. I am trying to contact her orthopedist, Dr. Glasgow, to see if he wants any further evaluation of her knee prosthesis. -Spinal tap did not show acute meningitis, but does show a fair number of lymphocytes. She may have an aseptic viral meningitis. -Urinalysis showed significant leukocytosis, but culture did not grow anything. She may need further FLOOR COVERER evaluation for possible vaginal discharge, cervicitis. CT scan showed mildly abnormal left adnexal venous plexus. -There was a question of subtle interstitial infiltrate at the right lung base on admission. This resolved on follow-up chest films. 2. ENT. 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 Patient should have follow-up with ENT after discharge. CT also showed a small lesion in the left supraorbital region of the skull, likely insignificant. She should have plain film x-ray in 3-6 months to ensure stability. CT also showed a 14 mm lesion in the inferior right thyroid. Six-month follow- up thyroid ultrasound is suggested. #3. Pulmonary. History of asthma. 4. Obesity. 5. Rheumatologic. Patient has abnormal CALLI and complement screens. She may need further follow- up as an outpatient. #6. DVT hep sq #7. Full Code. #8. Hypokalemia. This was replaced IV. [id number] minutes was spent today, reviewing the patient's record and test results, interviewing and examining her, and plan of care with staff, and writing orders.
[2017-03-18] MEDS: VANCOMYCIN 1,500 MG in 0.9 % SODIUM CHLORIDE 500 ML IV SCH ×2 (00:20→11:28)
[2017-03-18] MEDS: PIPERACILLIN SODIUM/TAZOBACTAM 3.375 GM in DEXTROSE 5% IN WATER 50 ML IV SCH ×3 (00:50→11:28)
[2017-03-18] MEDS: ACETAMINOPHEN 650 MG/65 ML BOTTLE IV SCH ×3 (01:00→11:29)
[2017-03-18] MEDS: NACL 0.9% W/KCL 20MEQ 1,000 ML IV SCH (01:30)
[2017-03-18] MEDS: ALBUTEROL SULFATE 2.5 MG/3 ML NEBULIZER NEB SCH ×2 (02:36→07:37)
[2017-03-18] MEDS: 0.9 % SODIUM CHLORIDE 10 ML SYRINGE IV SCH ×3 (06:03→14:01)
[2017-03-18 06:24] LABS: Basophils # (Auto) 0 K/mcL (0.0-0.3); Basophils % (Auto) 0.7 % (0.0-2.0); Eosinophils # (Auto) 0.2 K/mcL (0.0-0.7); Eosinophils % (Auto) 3.3 % (0.0-7.0); Granulocytes % (Auto) 55.1 % (38.0-78.0); Lymphocytes # (Auto) 2.1 K/mcL (1.5-4.8); Lymphocytes % (Auto) 32.5 % (15.5-49.0); Mean Cell Volume 87.3 fL (80.0-100.0); Mean Corpuscular HGB Conc 33.6 g/dL (31.0-36.0); Mean Corpuscular Hemoglobin 29.3 pg (26.0-34.0); Monocytes # (Auto) 0.5 K/mcL (0.1-0.9); Monocytes % (Auto) 8.4 % (1.0-12.0); Platelet Count 197 K/mcL (140-440); RBC 3.76 M/mcL (4.00-5.20); Red Cell Distribution Width 15.4 % (11.5-14.5)
[2017-03-18 06:43] LABS: ALT/SGPT 20 U/l (0-40); Albumin 2.9 gm/dL (3.2-5.2); Albumin/Globulin Ratio 0.8 (1.0-2.3); Alkaline Phosphatase 76 U/L (39-117); Bilirubin,Direct < 0.2 mg/dL (0.0-0.3); Blood Urea Nitrogen 5 mg/dl (6-20); Gamma Glutamyl Transpeptidase 66 U/L (5-36); Magnesium 1.9 mg/dL (1.6-2.5); Uric Acid 1.8 mg/dL (2.5-8.0)
[2017-03-18] MEDS: METOCLOPRAMIDE 10 MG/2 ML VIAL IV SCH ×2 (07:07→11:28)
[2017-03-18] MEDS ORDERED: POTASSIUM CHLORIDE 20 MEQ PACKET PO ONE (07:51)
[2017-03-18] MEDS: HEPARIN 5,000 UNIT/ML VIAL SQ SCH (08:26)
[2017-03-18] MEDS: DOCUSATE SODIUM 100 MG CAPSULE PO SCH (08:26)
[2017-03-18] MEDS ORDERED: IPRATROPIUM/ALBUTEROL 3 ML AMPUL.NEB NEB PRN (08:34)
[2017-03-18] MEDS ORDERED: ALBUTEROL SULFATE 2.5 MG/3 ML NEBULIZER NEB PRN (08:40)
[2017-03-18] MEDS: AZITHROMYCIN 250 MG in DEXTROSE 5% IN WATER 250 ML IV SCH (09:27)
[2017-03-18] MEDS ORDERED: BUTALB/ACETAMINOPHEN/CAFFEINE 1 TABLET PO ONE (11:57)
[2017-03-18 12:49] LABS: DNA Antibody DS 1 IU/mL
--- NOTE | 2017-03-18 13:31 | Discharge Summary ---
Medical - DS: Prov Patient information: Note initiated : 03/18/17 at 1:28 pm Patient: Zhane Meredith a 51 y/o F admitted on 03/14/17 for Abd Pain, Pain with Urination, Fever/UTI, Sepsis. Date of admission: 03/14/17 00:04 Discharge date: 03/18/17 Primary care physician: Opal Byers, phone number [phone] Admitting clinician: Swetha Mendoza Consults: 03/13/17 22:19 Consult to Physician [CONS] Stat Comment: Consulting Provider: Swetha Mendoza Reason For Exam: Physician to Consult Attending physician on discharge: Tamiko Kemp Medical - DS: Meds - Discharge Medications Prescriptions: Amoxicillin/Potassium Clav [Augmentin] 875 mg PO BIDCC #14 tab Butalb/Acetaminophen/Caffeine [Fioricet] 1 tab PO Q6HP PRN #10 tab PRN Reason: Headache Active and Home Medications: Discharge medications: Augmentin 875 mg 1 p.o. twice daily with food, 7 days, for tonsillitis Fioricet 1 tab every 6 hours as needed migraine headache, #10 Albuterol inhaler every 4 hours as needed Desonide cream topically as needed as before Asmanex HFA 1 puff daily to twice daily for asthma Tylenol 650 mg every 4 hours as needed Previous home Medications Albuterol Sulfate [Ventolin] 1 puff INH Q4HP PRN 08/31/16 [History Confirmed Last Taken 03/07/17] Mometasone Furoate [Asmanex Hfa] 1 puff INH DAILY 08/31/16 [History Confirmed Last Taken 03/13/17 09:00] Desonide [Tridesilon] 60 gm TP DAILYP PRN 03/14/17 [History Confirmed 03/14/17 Last Taken 03/12/17] Medical - DS: Hosp Hospital course: Mr. Meredith is a 51 year old F March 13, 2017: History of present illness: Ms. Meredith is a 51 year old Female with h/o asthma presented to the ER today with compalitns of weakness fever and abodminal pain, knee pain. The patient was in some distress from pain, and was unable to provide a good time frame . She notes that she had a left knee replacement done early this year by Dr Glasgow. the patient has been having some pain in the left knee going on for the last 1 month, taking some otc meds and ice packs to help deal with same. Over the last few days she notes pain has gotten worse and she has found it difficult to walk to day due to pain and weakness. Predominantly weakness. she notes that her acute worsening happened after a flu shot I believe given in [facility], the patient notes she was sick on wednesday, with lower abdmoinal pain and weakness, had some stiffness in the neck, and upper back. She notes she had lower abdominal cramping pain, non radiating assocated with increased frequency of urinartion, she notes pain in the urethral region as if somebody pulled a catheters out of there. The patient has been having some constipatin. She admits to some headaches, and dizziness. Some nausea and vomiting. some epigastric pain, but significant hypogastric pain. She admits having pain in multipe regions of her body, unable to localize well. In the ER she was febrile with tmax of 104.8, HR 120-130, BP stable, 96% on room air. She had a positive ua on urine analsysis, elevaetd wbc count to 13K, regino f lab work was unremakrable. The patient had CT abdomen which was reported neg, given her high temp ER physian performed a LP which showed clear liquid studies are pending. During my eval the patient also ahd painful left knee,which was warmer than the right, and had some effusion. Er Provider Dr Reynaga tapped the joint and fluid sent for analysis, hemorrhage cloudy liquid was aspirated. patient was admitted to the hospital for further management. March 14 Patient seen examined, no acute overnight issues, patient having headaches since last night still has lower abdominal pain she is afebrile now, and heart rate is better CSF and Synovial fluid not suggestive as etiology of her infection procalcitonin is elevated, UTI likely, but CXR and CT abdomen also show a some infiltrate indicative of broncho pneumonia. Will add azithromycin to her regime. continue with vanco and rocephin for UTI, however vanco should cover any possible joint/ open hearth melter infection. Will monitor culture results, discontinue vanco once cultures are negative. March 15 Patient seen examined, no acute overnight events, pt mildly febrile still complains of nausea and abdominal pain headache not as much today March 16: Today, the patient continues to feel poorly. She complains of nausea and dry heaves, significant headache, continued abdominal discomfort. She also notes today that her throat is very sore and that she is having a hard time swallowing. She continues to have moderate knee pain, but thinks it is better since they removed fluid from it in the emergency room. She reports her abdominal pain continues to be both in the epigastric area as well as the suprapubic area Otherwise, she denies fever or chills, chest pain or palpitations, cough or shortness of breath, diarrhea or constipation, dysuria. March 17: Today, the patient notes that she is feeling quite a bit better. She now recalls that she has had strep throat 3 times in the past year or 2. She also notes that she has had a very bad breath and a bad taste in her mouth on and off for about the last year. She says she kept thinking she needed to brush her teeth and her tongue more. Today, her throat pain is improved. Also her generalized pain, including abdominal pain and knee pain seems to be improving. She denies fever chills, chest pain or shortness of breath. She denies nausea or vomiting or dysuria. [place] white blood cell count is down to normal today. Unfortunately potassium is quite low this morning. This was replaced IV. March 18: Hospital course: The patient was admitted with high fever and numerous complaints, but without clear direction of what might be causing her apparent infection. However, 2 days ago, she did report significant throat pain, and exam did show very large tonsils. Subsequent CT scan showed severe tonsillitis. She has been contained on Zosyn and vancomycin since admission. Today she is feeling quite a bit better. Her whole body pain seems much improved, although she says she has had a migraine that started last night. She says she gets these rarely. Otherwise , she denies fever or chills. She has been able to swallow solid food and some pills. She denies significant cough, shortness of breath or chest pain, nausea or vomiting, diarrhea or constipation or dysuria. Pharynx: Tonsils are red and beefy without exudate. Neck is supple without obvious lymphadenopathy or JVD. Cardiac exam shows regular rate and rhythm. Lungs are clear to auscultation. Abdomen: Is quite obese. Abdomen is still somewhat tender, but seems less so than yesterday. Bowel sounds are active. Extremities show no edema. Neurologic: Is grossly nonfocal. Assessment and plan: 1. Infectious disease. Sepsis. Fever of uncertain origin/infectious diseases. Patient has had numerous complaints, including abdominal pain, headache, knee pain. CT of her neck does show severe tonsillitis, which could certainly explain her throat pain. This may explain her fever as well. Leukocytosis has resolved. We will switch her from IV Zosyn over to oral Augmentin today. She should continue this for another 7 days. -She should be referred to ENT when she follows up with her primary care physician, to review the status of her tonsils and whether or not she needs surgery. She does think that she has been having symptoms on and off for about a year. -Patient has ongoing knee pain, although this appears somewhat improved. I tried to contact her orthopedist, Dr. Glasgow, to see if he wants any further evaluation of her knee prosthesis. I was not able to reach him. -Spinal tap did not show acute meningitis, but does show a fair number of lymphocytes. She may have an aseptic viral meningitis. -Urinalysis showed significant leukocytosis, but culture did not grow anything. She may need further [employer] evaluation for possible vaginal discharge, cervicitis. CT scan showed mildly abnormal left adnexal venous plexus. -There was a question of subtle interstitial infiltrate at the right lung base on admission. This resolved on follow-up chest films. 2. ENT. 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 Patient should have follow-up with ENT after discharge. CT also showed a small lesion in the left supraorbital region of the skull, likely insignificant. She should have plain film x-ray in 3-6 months to ensure stability. CT also showed a 14 mm lesion in the inferior right thyroid. Six-month follow- up thyroid ultrasound is suggested. #3. Pulmonary. History of asthma. 4. Obesity. 5. Rheumatologic. Patient has abnormal CALLI and complement screens. She may need further follow- up as an outpatient. #6. DVT hep sq #7. Full Code. #8. Hypokalemia. This was replaced IV. Discharge diagnosis: High fever and leukocytosis. Presumably due to severe tonsillitis. Secondary discharge diagnosis: Abnormal CT scan findings, including a nasal bar, thyroid spot, spot in the skeletal, severe tonsillitis. - Time Spent with Patient Total time spent providing and/or coordinating discharge services: Greater than 30 minutes Medical - DS: Exam - Constitutional Vitals: Vital Signs Temp Pulse Resp BP Pulse Ox 03/18/17 07:45 98.7 F 12 105/71 91 03/18/17 04:00 98.7 F 74 12 111/71 95 03/18/17 00:00 98.4 F 77 14 112/72 96 03/17/17 20:00 98.1 F 65 14 95/63 92 03/17/17 15:32 98 F 16 102/68 95 Intake and Output 03/17/17 03/18/17 03/18/17 21:59 05:59 13:59 Intake Total 3055 / 3055 1215 / 1215 365 / 365 Balance 3055 / 3055 1215 / 1215 365 / 365 Intake: IV 1615 / 1615 615 / 615 365 / 365 Zithromax 250 mg In Dextrose 5% 250 / 250 in Water 250 ml @ 250 mls/hr IV Q24H [facility] Rx#:[id number] NaCl 0.9% W/KCl 20Meq 1000ML 1, 1000 / 1000 000 ml @ 80 mls/hr IV .[id number] [facility] Rx#:[id number] Zosyn 3.375 gm In Dextrose 5% 50 / 50 50 / 50 50 / 50 in Water 50 ml @ 100 mls/hr IV Q6H [facility] Rx#:[id number] Vancomycin 1,500 mg In Sodium 500 / 500 500 / 500 Chloride 0.9% 500 ml @ 333.3 mls/hr IV Q12H [facility] Rx#: [id number] Oral 1440 / 1440 600 / 600 Other: Meal Dinner Percent of Meal Consumed 50% Feeding Ability Independent # Voids 2 1 3 Weight 238 lb Medical - DS: Data Labs on day of discharge: Labs from last 24 hours 03/18/17 03/18/17 03/14/17 04:00 04:00 17:00 WBC 6.5 RBC 3.76 L Hgb 11.0 L Hct 32.8 L MCV 87.3 MCH 29.3 MCHC 33.6 RDW 15.4 H Plt Count 197 MPV 9.1 Gran % 55.1 Lymph % (Auto) 32.5 Wirt % (Auto) 8.4 Eos % (Auto) 3.3 Baso % (Auto) 0.7 Gran # 3.6 Lymph # (Auto) 2.1 Wirt # (Auto) 0.5 Eos # (Auto) 0.2 Baso # (Auto) 0 Sodium 145 Potassium 3.2 L Chloride 105 Carbon Dioxide 28 Anion Gap 12.0 BUN 5 L Creatinine 0.6 GFR Calculation 106 Glucose 99 Uric Acid 1.8 L Calcium 8.5 L Phosphorus 2.5 L Magnesium 1.9 Total Bilirubin 0.2 Direct Bilirubin < 0.2 GGT 66 H AST 24 ALT 20 Alkaline Phosphatase 76 Lactate Dehydrogenase 212 Total Protein 6.4 Albumin 2.9 L Globulin 3.5 Albumin/Globulin Ratio 0.8 L Triglycerides 88 U Methamphetamin GC/MS Not Reportable U Methamphetamin-MDMA Not Reportable Ur MDA Confirmation Not Reportable Urine MDEA Not Reportable Confirmation (GC/MS) Not Reportable Anti-DNA Antibody 03/14/17 15:25 WBC RBC Hgb Hct MCV MCH MCHC RDW Plt Count MPV Gran % Lymph % (Auto) Wirt % (Auto) Eos % (Auto) Baso % (Auto) Gran # Lymph # (Auto) Wirt # (Auto) Eos # (Auto) Baso # (Auto) Sodium Potassium Chloride Carbon Dioxide Anion Gap BUN Creatinine GFR Calculation Glucose Uric Acid Calcium Phosphorus Magnesium Total Bilirubin Direct Bilirubin GGT AST ALT Alkaline Phosphatase Lactate Dehydrogenase Total Protein Albumin Globulin Albumin/Globulin Ratio Triglycerides U Methamphetamin GC/MS U Methamphetamin-MDMA Ur MDA Confirmation Urine MDEA Confirmation (GC/MS) Anti-DNA Antibody 1 Preliminary micro results at discharge 03/13/17 16:10 Blood Culture - Preliminary Blood 03/13/17 16:38 Blood Culture - Preliminary Blood March 16: Neck CT:IMPRESSION: 1. Severe bilateral palatine tonsillitis. No evidence of abscess. Moderately enlarged reactive deep cervical lymph nodes are seen in the adjacent cervical and jugular regions. 2. 14.8 mm right low-attenuation lesion in the inferior right thyroid. Suggest six month thyroid ultrasound to reassess. It is most likely a colloid cyst or benign adenoma 3. C-spine degeneration as described Sinus CT: IMPRESSION: 1. Sinuses are normal. 2. Moderate rhinitis. Nasal septal deviation with right bone bar extending across the right nasal cavity. This can be a predisposing factor for chronic headaches 3. 7 mm radiolucent lesion in the left supraorbital region of the skull with a 5 mm central calcification. It is almost certainly insignificant, particularly in the absence of tenderness on palpation this region. Suggest plain films of the sinuses in 3-6 months to ensure stability Chest x-ray: PICC line is near the tricuspid valve plane, nurses instructed to withdraw 4 cm. March 15: Stool is negative for C. difficile. Knee aspiration, synovial fluid: Shows moderate white blood cells, but no organisms. No growth after 3 days. Spinal fluid: Shows rare mononuclear white blood cells. No neutrophils. No organisms. No growth after 3 days. Blood cultures are negative. Urine culture is negative. March 14: Sed rate is high at 38 March 13 Lactic acid is normal at 1.8 Initial pro-calcitonin was elevated at 1.6, follow-up is lower at 1.3 Urinalysis: Showed 500 leukocyte esterase, 14 white blood cells, no bacteria. Culture was negative. CSF analysis: Shows 88 cells, 83 lymphocytes, 17 monocytes. Glucose is normal at 58. Total protein is normal at 26 Synovial fluid: Is bloody. 1481 red cells are noted. Out of 100 cells, 68 her neutrophils, which is elevated. CALLI screen is positive at 1-80 Complement C4 is low at 8.4. C3 is normal at 139. Medical - DS: A/P - Patient/Caregiver Discharge Instructions Activity: increase activity as tolerated Diet: Regular Diet Additional Instructions: 1. High fever. This was most likely due to your severe tonsillitis. Please start Augmentin 875 mg. Take one twice a day with food, for 1 week. Please have your primary care physician refer you to an ENT doctor, to help decide if your tonsils should be removed. He should also review your CAT scan, as you have a tiny spot on your thyroid, and 1 on years ago. They do not think these are important, but suggested he may want to repeat a test in 3-6 months. You also have a bone growing across your right nasal cavity, which the radiologist says can cause headaches. He may want to review this with ENT as well. If your fevers and knee pain recur, please follow-up with Dr. Glasgow, to review if you could possibly have an infection in your knee prosthesis. Also, if you continue to have abdominal pain, he may want to have follow-up with a document review specialist. Your CT scan showed mild enlargement of the veins around your left ovary, which could cause pain. #2. Headaches. I have given you a small prescription for Fioricet, to help with headache pain. Discharge medications: Augmentin 875 mg 1 p.o. twice daily with food, 7 days, for tonsillitis Fioricet 1 tab every 6 hours as needed migraine headache, #10 Albuterol inhaler every 4 hours as needed Desonide cream topically as needed as before Asmanex HFA 1 puff daily to twice daily for asthma Tylenol 650 mg every 4 hours as needed Prescriptions: Amoxicillin/Potassium Clav [Augmentin] 875 mg PO BIDCC #14 tab Butalb/Acetaminophen/Caffeine [Fioricet] 1 tab PO Q6HP PRN #10 tab PRN Reason: Headache - Follow up Plan Follow up with: Opal Posey ARNP [Family Provider] - Disposition: Home, Self-Care Prognosis: Good Rehab Potential: Good I certify that the patient requires SNF services: No Overall status at discharge: patient is progressing back to baseline
== END 2017-03-18 18:20 | disposition home or self-care (01) | DRG 871 ==
LOC: ED 15:31 → SUATTDRO 03-14 00:04 → MEDSUR 03-14 00:04
PROVIDERS: ADMIT Internal Medicine; ATTEND Internal Medicine